=== PATIENT | male | born 1985 | race Caucasian/White ===

== ENCOUNTER → 2018-06-16 13:55 | Outpatient (CLI) | payer BC, SELFPAY ==
--- NOTE | 2018-06-16 13:58 | XR_ITS ---
XR knee RT 4V HISTORY: Pain ITS.REASON: 4 views weightbearing ORDERING PHYSICIAN: Fina Gunter MD PATIENT AGE: 32 years COMPARISON: None FINDINGS: No fracture or dislocation. No lytic or blastic change. Normal mineralization. No significant arthritic changes evident. Soft tissue swelling is present at the pretibial region superficial to the tibial tuberosity region. No fracture or dislocation. No lytic or blastic change. IMPRESSION: Soft tissue swelling along the proximal pretibial region consistent with bursitis
== END ==
PROVIDERS: PCP Emergency Medicine; Visit Provider Orthopaedic Surgery
DX: M25.561 Pain in right knee (principal)
CPT/HCPCS: 73564

== ENCOUNTER 2020-12-10 09:52 | Emergency (ER) | payer BC, SELFPAY ==
[2020-12-10 11:35] VITALS: BP 146/91; PULSE 112; RESP 21; TEMP 37; O2SAT 96; BMI 29.4
--- NOTE | 2020-12-10 12:07 | HMH.EDUTC ---
[facility] Disposition Clinical Impression: Sinusitis Qualifiers: Sinusitis location: unspecified location Chronicity: unspecified Qualified Code(s): J32.9 - Chronic sinusitis, unspecified Disposition: Home, Self-Care Condition on Discharge: Good Instructions: Sore Throat, DI for Sinusitis, DI for COVID-19 (Suspected or Confirmed ), Preventing the Spread of Coronavirus Discharge Instructions Additional Instructions: *Monitor Temp, Over the counter Motrin or Tylenol as directed/as needed Tylenol every 4 hours and Motrin every 6 hours (as long as your family doctor has told you that you can take it) for fever or pa-in. and straight to ER if unable to lower temp less than 101.0 after medication given *Warm salt water gargles may help to soothe the throat *Throat Lozenges *Warm fluids like tea with honey may help to soothe the throat *Sleep elevated *Humidifier/Vaporizer Your throat swab was sent for culture. Those results are typically sent to your primary care. Be sure to follow up in 2-3 days with your family doctor/primary care physician if no improvement so they can review those result and treat if necessary. If you don?t have a primary care doctor, I recommend you get one but in the mean time, you will have to return to a walk in clinic Follow up IMMEDIATELY for new or worsening symptoms or no Noticeable improvement over the next 48-72 hours. 911 for difficulty breathing or swallowing You were tested for today for COVID19 your test result should be back in the next 24-48 hours, Check the [facility] to see if your test results are back in the next 48 it may say detected that means your result is positive.You was given handout instructions on how log on and see your results. If you do not have internet access you may call the [facility] for your results [phone] You was given a handout with instructions for Self Quarantine and Self isolation for while you wait on test results and what to do if they are positive If you are positive the Health Dept will be contacting you also Make sure to take your Vitamins Vit. C Vit D and Zinc if you can take them Prescriptions: methylPREDNISolone [Medrol 4mg tab] 4 mg PO DIRECTED #21 tab Transmission Status: Received by [facility] Azithromycin [Z-Davon 250mg Tab] 250 mg PO DIRECTED #6 tab Transmission Status: Received by [facility] Referrals: Mario Paz MD [Primary Care Provider] - Forms: Work/School Release Medical Decision Making - Ananda Inquiry Pt receiving controlled substance: No Ananda was queried for this patient: No Vital Signs: 12/10/20 11:35 12/10/20 12:32 Temperature 98.6 F 98.6 F Temperature Source Oral Pulse Rate 112 H Pulse Rate [Right Brachial] 112 H Respiratory Rate Blood Pressure 146/91 H Blood Pressure [Right Arm] 146/91 H Blood Pressure Mean [Right Arm] 109 Blood Pressure Source [Right Arm] Automatic Cuff Blood Pressure Position [Right Arm] Sitting 02 Sat by Pulse Oximetry 96 Oxygen Delivery Method Room Air - Lab Data Lab results reviewed: Yes: I reviewed the patient's lab results. Orders (Tests/Meds): ORDERS Category Date Time Status Covid-19 Nasal PCR ([facility]) Routine Lab 12/10/20 11:43 Received [facility] HPI - General Stated complaint: body aches Time Seen by Provider: 12/10/20 12:07 Mode of Arrival: Ambulatory Source of Information: Patient Limitations: No Limitations Description of Symptoms (Recalled from Triage Doc. by RN): PATIENT C/O SINUS CONGESTION, COUGH, AND RUNNY NOSE SINCE THURSDAY HEENT Symptoms (Recalled from RN notes): Yes Resp Symptoms (Recalled from RN notes): Yes Skin Symptoms (Recalled from RN notes): No MS Symptoms (Recalled from RN notes): No Functional Status (Recalled from RN notes): WNL - History of Present Illness Provider Complaint: Patient states that he recently was on vacation in [facility] that ever since he has been having sinus pain and pre
[2020-12-10 12:32] VITALS: BP 146/91; PULSE 112; RESP 21; TEMP 37; O2SAT 96
[2020-12-10 21:21] LABS: UTC Strep Screen (Rapid) Negative (Negative)
--- NOTE | 2020-12-11 09:03 | PC.NURSE ---
pt notified of positive covid test results
[2020-12-11 09:06] LABS: UTC Influenza A Antigen Negative (Negative); UTC Influenza B Antigen Negative (Negative)
== END 2020-12-10 12:38 | disposition home or self-care (01) ==
PROVIDERS: Emergency Provider Nurse Practitioner; PCP Emergency Medicine
DX: U07.1 COVID-19 (principal); J32.9 Chronic sinusitis, unspecified; F17.210 Nicotine dependence, cigarettes, uncomplicated
CPT/HCPCS: 87804; 87880; 99203; G0463; U0003

== ENCOUNTER 2021-01-16 09:31 | Emergency (ER) | payer BC, SELFPAY ==
[2021-01-16 09:35] VITALS: BP 160/92; PULSE 91; RESP 19; TEMP 36.8; O2SAT 99; BMI 31.0
--- NOTE | 2021-01-16 10:06 | HMH.EDUTC ---
[facility] [place]ression: Otitis media Qualifiers: Otitis media type: unspecified Laterality: left Qualified Code(s): H66.92 - Otitis media, unspecified, left ear Otitis externa Qualifiers: Otitis externa type: unspecified type Chronicity: unspecified Laterality: left Qualified Code(s): H60.92 - Unspecified otitis externa, left ear Disposition: Home, Self-Care Condition on Discharge: Good Instructions: Middle Ear Infections (Alternative Therapy), Middle Ear Infection, Amoxicillin, Neomycin, Polymyxin, and Hydrocortisone Otic Additional Instructions: Use drops as prescribed Take oral medication as prescribed Follow up with your Family Doctor if no improvement or any worsening of symptoms Return if needed Straight to ER if any life threatening symptoms Prescriptions: Amoxicillin [Amoxicillin 875MG Tab] 875 mg PO Q12H #20 tab Transmission Status: Pending to [facility] Neomycin/Polymyxin B Sulf/Hc [Nnshumzi-Mfxvbemyx-ZQ Otic Susp 10mL] 4 drops EAR-LEFT TID 7 Days #10 ml Transmission Status: Pending to [facility] Referrals: Mario Paz MD [Primary Care Provider] - As needed Time of Disposition: 10:13 Medical Decision Making - Ananda Inquiry Pt receiving controlled substance: No Ananda was queried for this patient: No Vital Signs: 01/16/21 09:35 Temperature 98.3 F Temperature Source Oral Pulse Rate [Right Brachial] 91 H Respiratory Rate 19 Blood Pressure [Right Arm] 160/92 H Blood Pressure Mean [Right Arm] 114 Blood Pressure Source [Right Arm] Automatic Cuff Blood Pressure Position [Right Arm] Sitting 02 Sat by Pulse Oximetry 99 Oxygen Delivery Method Room Air [facility] [place] - General Stated complaint: lt ear pain Time Seen by Provider: 01/16/21 10:06 Mode of Arrival: Ambulatory Source of Information: Patient Limitations: No Limitations Description of Symptoms (Recalled from Triage Doc. by RN): PATIENT C/O LEFT EAR PAIN SINCE YESTERDAY HEENT Symptoms (Recalled from RN notes): Yes Resp Symptoms (Recalled from RN notes): No Skin Symptoms (Recalled from RN notes): No MS Symptoms (Recalled from RN notes): No Functional Status (Recalled from RN notes): WNL - History of Present Illness Provider Complaint: Patient states that he has been having pain in his left ear that has continued to get worse State that yesterday the pain was worse and hurt when he would open his mouth or try to eat and feels like it is swollen so he came in to get it checked out - Related Data Previous Rx's Medication Instructions Recorded Amoxicillin [Amoxicillin 875MG 875 mg PO Q12H #20 tab 01/16/21 Tab] Neomycin/Polymyxin B Sulf/Hc 4 drops EAR-LEFT TID 7 Days #10 ml 01/16/21 [Mbyjgygc-Hxweaxycj-BE Otic Susp 10mL] Allergies Allergy/AdvReac Type Severity Reaction Status Date / Time No Known Allergies Allergy Verified 06/16/18 14:41 - Worker's Comp Is this a Worker's Comp case?: No [facility] History - Hepatitis A Screen Drug use history?: No High risk sexual behaviors?: No History of sexually transmitted infection?: No Currently employed?: No Childcare worker?: No Do you have indoor plumbing?: Yes Do you have electricity?: Yes Attestation statement:: This patient has been screened for Hepatitis A risk factors. I have reviewed the patient's past medical history: Yes Medical History: Denies:: Asthma, Cancer, Chronic Obstructive Pulmonary Disease (COPD), Diabetes Mellitus Type 1, Diabetes Mellitus Type 2, Hypertension, MRSA Other Surgeries: Yes: Other Amputation: No Fractures: No - Social History Smoking Status: Current every day smoker Tobacco Type: cigarettes # Packs/Day (cigarettes): 2 Alcohol Intake: current Alcohol Intake Frequency:: holidays/special occasions only Occupational Status: employed Family Hx:: No significant family history ROS Obtained: Yes All systems reviewed & no additional complaints, Yes Systems reviewed as appropriate & no
[2021-01-16 10:20] VITALS: BP 160/92; PULSE 91; RESP 19; TEMP 36.8; O2SAT 99
== END 2021-01-16 10:24 | disposition home or self-care (01) ==
PROVIDERS: Emergency Provider Nurse Practitioner; PCP Emergency Medicine
DX: H66.92 Otitis media, unspecified, left ear (principal); H60.92 Unspecified otitis externa, left ear; F17.210 Nicotine dependence, cigarettes, uncomplicated
CPT/HCPCS: 99202; G0463

== ENCOUNTER 2021-11-18 14:15 | Emergency (ER) | payer BC, SELFPAY ==
[2021-11-18 15:03] VITALS: BP 152/80; PULSE 110; RESP 20; TEMP 38.7; O2SAT 98; BMI 30.1
[2021-11-18 15:21] LABS: UTC Strep Screen (Rapid) Negative (Negative)
--- NOTE | 2021-11-18 15:29 | HMH.EDUTC ---
[facility] [place] Clinical Impression: Viral syndrome, Exposure to COVID-19 virus Disposition: Home, Self-Care Condition on Discharge: Good Instructions: DI for Viral Syndrome, DI for COVID-19 (Suspected or Confirmed ), Preventing the Spread of Coronavirus Discharge Instructions Additional Instructions: Drink plenty of fluids. Take tylenol or ibuprofen for pain or fever. Take the medications as directed. Follow up with your regular doctor. GO TO THE ER FOR ANY WORSENING SYMPTOMS Quarantine until you know the results of your covid-19 test. Notify your school or workplace of your results and follow their instructions regarding return to work/school. Prescriptions: Benzonatate [Benzonatate 100mg cap] 100 mg PO TIDP PRN #30 cap PRN Reason: Cough Transmission Status: Received by [facility] methylPREDNISolone [Medrol] 4 mg PO DIRECTED 6 Days #21 packet Transmission Status: Received by [facility] Azithromycin [Z-Davon 250mg Tab*] 250 mg PO UD DOSE PK #6 tab Transmission Status: Received by [facility] Referrals: Mario Paz MD [Primary Care Provider] - Forms: Work/School Release Time of Disposition: 15:39 Medical Decision Making - Medical Records Medical records reviewed: No: I reviewed the patient's medical records. - Ananda Inquiry Pt receiving controlled substance: No Vital Signs: 11/18/21 15:03 11/18/21 15:44 Temperature 101.7 F H 101.7 F H Temperature Source Temporal Artery Scan Pulse Rate 110 H Pulse Rate [Left] 110 H Respiratory Rate 20 20 Blood Pressure 150/80 H Blood Pressure [Right Arm] 152/80 H Blood Pressure Mean [Right Arm] 104 02 Sat by Pulse Oximetry 98 - Lab Data Lab Results 11/18/21 15:07: Strep Scn Rapid Clinic Negative Orders (Tests/Meds): ED MEDICATIONS Discontinued Medications Generic Name Dose Route Start Last Admin Trade Name Freq PRN Reason Stop Dose Admin Acetaminophen 650 mg 11/18/21 15:07 11/18/21 15:09 Acetaminophen 325mg Tab PO 11/18/21 15:08 650 mg ONCE ONE Administration ORDERS Category Date Time Status Strep Screen Confirmation Stat Micro 11/18/21 15:07 Received [facility] [place] - General Stated complaint: h/a, fever, congestion, cough Time Seen by Provider: 11/18/21 15:29 Mode of Arrival: Ambulatory Source of Information: Patient Limitations: No Limitations Description of Symptoms (Recalled from Triage Doc. by RN): patient comes in with complaints of headache, fever, body aches, fatigue, cough, sinus problems. symptoms began yesterday. HEENT Symptoms (Recalled from RN notes): Yes Resp Symptoms (Recalled from RN notes): Yes Skin Symptoms (Recalled from RN notes): No MS Symptoms (Recalled from RN notes): No Functional Status (Recalled from RN notes): n/a - History of Present Illness Provider Complaint: He states that for the past 2 days he has felt bad, ran a fever up to 102, had chills, and he has a nonproductive cough. - Related Data Previous Rx's Medication Instructions Recorded Amoxicillin [Amoxicillin 875MG 875 mg PO Q12H #20 tab 01/16/21 Tab] Neomycin/Polymyxin B Sulf/Hc 4 drops EAR-LEFT TID 7 Days #10 ml 01/16/21 [Pzjobnlz-Vstkchfrm-NN Otic Susp 10mL] Azithromycin [Z-Davon 250mg Tab*] 250 mg PO UD DOSE PK #6 tab 11/18/21 Benzonatate [Benzonatate 100mg 100 mg PO TIDP PRN #30 cap 11/18/21 cap] methylPREDNISolone [Medrol] 4 mg PO DIRECTED 6 Days #21 11/18/21 packet Allergies Allergy/AdvReac Type Severity Reaction Status Date / Time No Known Allergies Allergy Verified 11/18/21 15:09 - Worker's Comp Is this a Worker's Comp case?: No [facility] History - Hepatitis A Screen Attestation statement:: This patient has been screened for Hepatitis A risk factors. I have reviewed the patient's past medical history: Yes Medical History: Denies:: Asthma, Cancer, Chronic Obstructive Pulmonary Disease (C
[2021-11-18 15:44] VITALS: BP 150/80; PULSE 110; RESP 20; TEMP 38.7
== END 2021-11-18 15:45 | disposition home or self-care (01) ==
PROVIDERS: Emergency Provider Nurse Practitioner Family; PCP Emergency Medicine
DX: R51.9 Headache, unspecified; M79.10 Myalgia, unspecified site; F17.210 Nicotine dependence, cigarettes, uncomplicated
CPT/HCPCS: 87880; 99213; C9803; G0463; U0003; U0005

== ENCOUNTER 2022-03-17 11:59 | Emergency (ER) | payer BC, SELFPAY ==
[2022-03-17 14:40] VITALS: BP 149/87; PULSE 109; RESP 19; TEMP 37.3; O2SAT 96; BMI 31.5
--- NOTE | 2022-03-17 14:55 | EXP.UTC ---
Discharge Plan Disposition Patient Disposition: Home, Self-Care Condition: Good Prescriptions Prescriptions: New oseltamivir [Tamiflu] 75 mg capsule 75 mg PO BID Qty: 10 0RF benzonatate 100 mg capsule 100 mg PO TID PRN (Reason: cough) Qty: 30 0RF Referrals Follow up/Referrals: Mario Paz MD [Primary Care Provider] - See instructions Activity Restrictions/Add. Instructions Additional Instructions/Restrictions: Start Tamiflu today if you are going to take it. Discussed risk and possible benefits. Lots of rest Increase Fluids water, Gatorade, powerade, pedialyte,if infant/toddler/child Alternate Tylenol and / or ibuprofen as discussed for fever, aches, chills Follow up IMMEDIATELY with your family doctor for new or worsening Symptoms OR no noticeable improvement over the next 48-72 hours, 911 for difficulty or breathing You or your child area contagious until no fever, aches, chills for 24 hours with medication for symptoms Help Prevent the spread of influenza: ?Wash your hands often. Use soap and water. Wash your hands after you use the bathroom, change a child's diapers, or sneeze. Wash your hands before you prepare or eat food. Use gel hand cleanser that has 60% alcohol, when soap and water are not available. Do not touch your eyes, nose, or mouth unless you have washed your hands first. Cover your mouth when you sneeze or cough. Cough into a tissue or the bend of your arm. If you use a tissue, throw it away immediately and wash your hands. Clean shared items with a germ-killing apron cleaner. Clean table surfaces, doorknobs, and light switches. Do not share towels, silverware, and dishes with people who are sick. Wash bed sheets, towels, silverware, and dishes with soap and water. Wear a mask over your mouth and nose if you are sick. The face mask may help protect others from becoming infected with the flu. Wear the mask when in common areas of your home or if you seek care with a healthcare provider. Stay away from others if you are sick. Stay at home until 24 hours after your fever and symptoms are gone. Clinical Impressions Clinical Impression: Influenza A Stand Alone Forms Stand Alone Forms: Work/School Release Instructions Patient Instructions: DI for Influenza -- Adult, Influenza Discharge ED Provider[place] Sybil Valenzuela [facility] [place] General Stated complaint: cough,runny nose,sneezing,no taste Mode of Arrival: Ambulatory Source of Information: Patient Limitations: No Limitations Time Seen by Provider: 03/17/22 14:55 Description of Symptoms (Recalled from Triage Doc. by RN): PATIENT C/O BODY ACHES, COUGH, AND FEVER SINCE YESTERDAY HEENT Symptoms (Recalled from RN notes): No Resp Symptoms (Recalled from RN notes): Yes Skin Symptoms (Recalled from RN notes): No MS Symptoms (Recalled from RN notes): No Functional Status (Recalled from RN notes): WNL History of Present Illness Provider Complaint: Patient states that he was around coworker that was sick but not sure what he had States that yesterday he started with bodyaches, chills, headache and fever and today he has had cough States that he feels achy all over and over all does not feel well Related Data Previous Rx's Medication Instructions Recorded benzonatate 100 mg capsule 100 mg PO TID PRN cough #30 caps 03/17/22 oseltamivir 75 mg capsule (Tamiflu) 75 mg PO BID #10 caps 03/17/22 Allergies Allergy/AdvReac Type Severity Reaction Status Date / Time No Known Allergies Allergy Verified 11/18/21 15:09 Worker's Comp Is this a Worker's Comp case?: No [facility] Disclaimer: The information contained in this section may have been updated after the patient was seen, as this information can be updated by other users. Medical History (Updated 03/17/22 @ 15:03 by Sybil Valenzuela APRN)
[2022-03-17 14:57] LABS: UTC Influenza A Antigen Positive (Negative); UTC Influenza B Antigen Negative (Negative)
[2022-03-17 15:04] VITALS: BP 149/87; PULSE 109; RESP 19; TEMP 37.3; O2SAT 96
== END 2022-03-17 15:10 | disposition home or self-care (01) ==
PROVIDERS: Emergency Provider Nurse Practitioner; PCP Emergency Medicine
DX: J10.1 Influenza due to other identified influenza virus with other respiratory manifestations (principal)
CPT/HCPCS: 87804; 99212; G0463

== ENCOUNTER → 2022-04-23 10:29 | Outpatient (POV) | payer BC, SELFPAY | PROVIDERS: Visit Provider Specialist/Technologist | DX: Z00.00 Encounter for general adult medical examination without abnormal findings (principal) ==

== ENCOUNTER → 2022-05-14 10:21 | Outpatient (POV) | payer BC, SELFPAY | PROVIDERS: Visit Provider Specialist/Technologist | DX: Z00.00 Encounter for general adult medical examination without abnormal findings (principal) ==

== ENCOUNTER 2023-04-12 10:41 | Emergency (ER) | payer BC, SELFPAY ==
--- NOTE | 2023-04-12 10:54 | XR_ITS ---
PROCEDURE INFORMATION: Exam: XR Left Hand Exam date and time: 04/12/2023 11:04 AM Age: 37 years old Clinical indication: Injury or trauma; Other: Foreign object in L 3rd distal phalanx, anterior; Additional info: Pain in middle finger TECHNIQUE: Imaging protocol: Radiologic exam of the left hand. Views: 3 or more views. COMPARISON: No relevant prior studies available. FINDINGS: Bones/joints: No acute fracture or malalignment. Joint spaces are maintained. Soft tissues: No radiopaque foreign bodies are seen. IMPRESSION: No acute fracture or malalignment. No radiopaque foreign bodies are seen.
[2023-04-12 11:00] VITALS: BP 123/84; PULSE 89; RESP 18; TEMP 36.8; O2SAT 97; BMI 32.3
--- NOTE | 2023-04-12 11:05 | ED_ITS ---
Discharge Plan Disposition Patient Disposition: Home, Self-Care Condition: Good Prescriptions Prescriptions: New cephalexin 500 mg capsule 500 mg PO QID Qty: 40 0RF mupirocin 2 % ointment 1 applic topical TID 7 Days Qty: 15 0RF No Action amoxicillin 875 mg tablet 875 mg PO BID Qty: 20 0RF mupirocin 2 % ointment 1 applic topical TID Qty: 15 0RF lisinopril 10 mg tablet 10 mg PO DAILY Qty: 30 2RF Referrals Follow up/Referrals: Melo Stock DO [Staff Physician] - See instructions Provider,Referral, [Primary Care Provider] - See instructions Activity Restrictions/Add. Instructions Additional Instructions/Restrictions: Keep the wound clean and dry. Watch the wound for signs of worsening infection, such as redness, swelling, drainage, fever. etc. Take tylenol or ibuprofen for pain. Follow up with your regular doctor. Follow up with orthopedics (Dr. Stock) if you continue to have trouble with the finger. I put in a referral but you would need to call his office and schedule the appointment. His office phone number will be on this paperwork. GO TO THE ER FOR ANY WORSENING SYMPTOMS OR CONCERNS. Clinical Impressions Clinical Impression: Foreign body in skin of left middle finger with infection Instructions Patient Instructions: DI for Removal of Foreign Body From Skin, Cephalexin, Mupirocin Discharge ED Provider: Jacobo Short [facility] General Stated complaint: foreign object in left middle finger,unknown origi Time Seen by Provider: 04/12/23 11:05 History of Present Illness Provider Complaint: He states that for the past 2 weeks he has had a splinter in his left middle finger. He has tried to get it out but he has been unsuccessful. He states that it is becoming more tender to touch. He denies any fever/chills. He is not a diabetic. Related Data Previous Rx's Medication Instructions Recorded amoxicillin 875 mg tablet 875 mg PO BID #20 tabs 04/02/23 lisinopril 10 mg tablet 10 mg PO DAILY #30 tabs 04/02/23 mupirocin 2 % topical ointment 1 applic topical TID #15 grams 04/02/23 cephalexin 500 mg capsule 500 mg PO QID #40 caps 04/12/23 mupirocin 2 % topical ointment 1 applic topical TID 7 days #15 04/12/23 grams Allergies Allergy/AdvReac Type Severity Reaction Status Date / Time No Known Allergies Allergy Verified 04/12/23 11: [facility] Disclaimer: The information contained in this section may have been updated after the patient was seen, as this information can be updated by other users. Medical History (Updated 04/12/23 @ 12:04 by Jacobo Short APRN) Hearing Loss Medical clearance for incarceration Tobacco abuse Surgical History (Reviewed 04/12/23 @ :23 by Slime Mcdermott RN) No significant past surgical history Family History (Reviewed 04/12/23 @ :23 by Slime Mcdermott RN) Other No significant family history Social History (Reviewed 04/12/23 @ : by Slime Mcdermott RN) Smoking Status: Current every day smoker tobacco type: cigarettes packs per day: 2 alcohol intake: current current occupational status: employed Travel in the last 8 weeks: None ROS Obtained: Yes All systems reviewed & no additional complaints except as documented Constitutional Constitutional: Denies chills and Denies fever(s) Eyes Eyes: Denies eye discharge ENT Ears, Nose, Mouth, and Throat: Denies dizziness, Denies otalgia and Denies sore throat Cardiovascular Cardiovascular: Denies chest pain Respiratory Respiratory: Denies shortness of breath, Denies chest congestion, Denies cough, Denies stridor and Denies wheezing Gastrointestinal Gastrointestingal: Denies nausea or vomiting Musculoskeletal Musculoskeletal: Reports system reviewed and no additional complaints, except as documented and Denies arthralgias Integumentary/Breasts Skin/Breast: Reports as per HPI Neurologic Neurologic: Denies dizziness and Denies paresthesias Allergic/Immunologic Allergic/Immunologic: Denies wheezing Physical Exam General General appearance: alert and in no apparent distress Head Head exam: atraumatic, normocephalic and normal inspection Eye Eye exam: Present normal appearance, PERRL and EOMI ENT ENT exam: Present normal exam, normal oropharynx, mucous membranes moist, TM's normal bilaterally and normal external ear exam Neck Neck exam: Present normal inspection, full ROM and trachea midline; Absent meningismus or lymphadenopathy Chest Chest inspection: Present normal inspection and symmetric chest wall rise; Absent tenderness Respiratory Respiratory exam: Present normal lung sounds bilaterally; Absent respiratory distress Cardiovascular Cardiovascular exam: Present regular rate and normal rhythm; Absent JVD Abdominal Exam Abdominal exam: Present soft and normal bowel sounds; Absent distention, tenderness or guarding Extremities Exam Extremities exam: Present normal inspection, full ROM and normal capillary refill; Absent calf tenderness Back Exam Back exam: Present normal inspection; Absent tenderness Neurological Exam Neurological exam: Present alert and oriented X3 Psychiatric Psychiatric exam: Present normal affect and normal mood Skin Skin exam: Present other (there is mild swelling of the palmar aspect of his left middle finger near the tip. ) Lymphatic Lymphatic Findings: no adenopathy Medical Decision Making Medical Records Medical records reviewed: No I reviewed the patient's medical records. Ananda Inquiry Pt receiving controlled substance: No Orders (Tests/Meds): ORDERS Category Date Time Status Hand XR left minimum 3 views [XR hand LT min 3V] Stat Exams 04/12/23 10:54 Ordered Procedures Risk/Benefits of Procedure(s) Were Explained: Yes Foreign Body Removal Time Out Performed: Yes Site: left and hand (middle finger) Description of foreign body: other (splinter) Sedation/Analgesia: none Technique: removal with forceps and incision made to facilitate removal Confirmed by:: direct visualization and radiograph Complications: none (He tolerated this well, a very small piece of wood was removed from the finger. ) Post-procedure exam: awake, alert, normal BP, normal HR and normal O2 sat Neurovascular: normal distal pulse, normal capillary fill, distal light touch sensation intact, distal motor function normal, no signs of compartment syndrome and no change from pre-procedure
[2023-04-12] MEDS: LIDOCAINE 1% PF 2ML AMPULE 1 ML IJ (12:04)
[2023-04-12 12:10] VITALS: BP 123/84; PULSE 89; RESP 18; TEMP 36.8; O2SAT 97
== END 2023-04-12 12:00 | disposition home or self-care (01) ==
PROVIDERS: Emergency Provider Nurse Practitioner Family
DX: S60.453A Superficial foreign body of left middle finger, initial encounter (principal); F17.210 Nicotine dependence, cigarettes, uncomplicated; W45.8XXA Other foreign body or object entering through skin, initial encounter
CPT/HCPCS: 10120; 73130; 99213; 99214; G0463

== ENCOUNTER 2023-04-17 19:32 | Outpatient (CLI) | payer BC, SELFPAY ==
[2023-04-17 19:48] LABS: Basophils # 0.1 K/mm3 (0-0.2); Basophils % 0.8 % (0.1-2.0); Eosinophils # 0.3 K/mm3 (0.0-0.4); Eosinophils % 2.5 % (0.1-12.0); Hematocrit 51.6 % (42.0-52.0); Hemoglobin 17.1 g/dL (14.1-18.0); Lymphocytes # 1.7 K/mm3 (0.7-4.5); Lymphocytes % 15.2 % (10-50); Mean Corpuscular HGB Conc 33.1 g/dL (31.8-35.4); Mean Corpuscular Hemoglobin 32.7 pg (27.0-31.2); Mean Corpuscular Volume 98.8 fl (80-94); Mean Platelet Volume 8.7 fl (7.4-10.4); Monocytes # 0.6 K/mm3 (0.1-1.0); Monocytes % 5.2 % (1.7-9.3); Neutrophils # 8.4 K/mm3 (1.8-7.8); Neutrophils % 76.2 % (37.0-80.0); Platelet Count 287 K/mm3 (142-424); Red Blood Count 5.23 M/mm3 (4.60-6.20); Red Cell Distribution Width 12.6 % (11.5-17.5)
[2023-04-17 20:40] LABS: Chloride 99 mmol/L (98-107); Potassium 4.1 mmoL/L (3.5-5.1); Sodium 134 mmol/L (136-145)
[2023-04-17 20:42] LABS: Alanine Aminotransferase 47 U/L (12-78); Aspartate Amino Transferase 46 U/L (17-59); Blood Urea Nitrogen 8 mg/dl (9-20); Estimated Glomerular Filt Rate 108 ml/min (>60); GFR (African American) 131 ML/MIN (>60)
[2023-04-17 20:43] LABS: Albumin Level 4.6 g/dl (3.5-5.0); Albumin/Globulin Ratio 1.6 (1.1-1.8); Alkaline Phosphatase 95 U/L (38-126); Anion Gap 16.1 mEq/L (5-15); Bilirubin,Total 0.6 mg/dl (0.2-1.3); Calcium 8.9 mg/dl (8.4-10.2); Carbon Dioxide 23 mmol/L (22.0-30.0); Chol/HDL Ratio 5.4 (1-3.5); Cholesterol 244 mg/dl (140-200); Globulin 2.9 g/dL (1.3-3.2); Glucose 115 mg/dl (74-100); HDL Cholesterol 45 mg/dl (40-60); Total Protein,Serum 7.5 g/dl (6.3-8.2); Triglycerides 174 mg/dl (30-150); VLDL Cholesterol 35 mg/dL (0-40)
[2023-04-17 20:54] LABS: Direct LDL Cholesterol 165.45 mg/dL (100-129)
[2023-04-17 21:14] LABS: Thyroid Stimulating Hormone 1.19 uIU/mL (0.465-4.68)
[2023-04-17 21:33] LABS: 25-OH Vitamin D, Total 48.6 ng/mL (30-100)
== END 2023-04-17 23:59 ==
LOC: LAB.DROPOF 19:35
PROVIDERS: PCP Student in an Organized Health Care Education/Training Program; Visit Provider Student in an Organized Health Care Education/Training Program
DX: I10 Essential (primary) hypertension (principal); R51.9 Headache, unspecified; E66.9 Obesity, unspecified; Z68.32 Body mass index [BMI] 32.0-32.9, adult; Z72.0 Tobacco use; Z79.899 Other long term (current) drug therapy
CPT/HCPCS: 80053; 80061; 82306; 84443; 85025

== ENCOUNTER 2023-10-17 09:01 | Emergency (ER) | payer SELFPAY ==
[2023-10-17 09:01] VITALS: BP 157/98; PULSE 107; RESP 24; TEMP 37.3; O2SAT 90
--- NOTE | 2023-10-17 09:04 | [facility].EDGENADL ---
Discharge Plan Disposition Patient Disposition: Home, Self-Care Condition: Fair Prescriptions Prescriptions: New methocarbamol 500 mg tablet 500 mg PO Q8H Qty: 90 0RF oxycodone 5 mg tablet 5 mg PO Q8H PRN (Reason: pain) Qty: 10 0RF ibuprofen 600 mg tablet 600 mg PO Q8H PRN (Reason: pain) Qty: 30 0RF acetaminophen 500 mg capsule 500 mg PO Q6H PRN (Reason: pain) Qty: 30 0RF No Action lisinopril 10 mg tablet 10 mg PO DAILY Qty: 30 2RF mupirocin 2 % ointment 1 applic topical TID 7 Days Qty: 15 0RF Referrals Follow up/Referrals: Provider,Referral, MD [Primary Care Provider] - See instructions Activity Restrictions/Add. Instructions Additional Instructions/Restrictions: As we discussed, your CT scans showed rib fractures of your fifth through eighth ribs on the right. They are closed, we do not see any other acute injuries on your CT scans. I have prescribed pain medications for you to take to manage pain related to rib fractures. Will need to follow-up with your primary care doctor and it is very important to use the incentive spirometer that I have provided. Please use this multiple times throughout the day, for example, if you are watching television, using incentive spirometer during every commercial break. This will help you keep your lungs open with your rib injuries that are painful with breathing deeply, however it is important to keep your lungs open to prevent infection. After shared decision making we have decided not to admit you to the hospital. However, please return with any new or worsening symptoms or if you change your mind. Clinical Impressions Clinical Impression: Multiple fractures of ribs Qualifiers: Encounter type: initial encounter Fracture type: closed Laterality: right Qualified Code(s): S22.41XA - Multiple fractures of ribs, right side, initial encounter for closed fracture Stand Alone Forms Stand Alone Forms: Work/School Release Instructions Patient Instructions: Rib Fracture, DI for Rib Fracture Discharge ED Provider: Herbert Rose Adult HPI General Chief complaint: Fall Stated complaint: AO fall Time Seen by Provider: 10/17/23 09:04 History of Present Illness HPI narrative: The patient presents with a chief complaint of pain and injuries sustained from a fall off an embankment the previous night at approximately 10:30 PM. He reports hitting tree roots and rocks during the fall and was fishing at the time of the incident. He denies losing consciousness during the fall. He is experiencing pain in multiple areas, including the right side of the ribs, head, neck, and jaw. He reports that taking a deep breath, talking, and getting up and down are all painful. He is unsure about his tetanus vaccination status but believes he may be up to date. He has a history of smoking and reports having a medical condition and taking medications, but specific details were not provided during the encounter. He denies any known allergies to medications. He denies any chronic medical issues with the exception of hypertension. Denies any numbness or tingling. Denies any diplopia, denies any nausea or vomiting. Denies any shortness of breath or difficulty swallowing. Please note that above description of symptoms, in this electronic medical record under categorization of recalled from ER triage doctor by RN are reflective of an initial nursing assessment, however, is not reflective of my full history and physical exam that was personally taken and clarified. Consequentially, this preceding description of symptoms, which may include the patient's categorized chief complaint in the EMR, do not reflect my personal clinical impression, and the ultimate description of history of present illness and patient stated complaints should be deferred to this section of the note. Unless stated otherwise or congruent with this section of the note, additional signs, symptoms, or incongruence should be interpreted as inaccurate with my clinical impression. Related Data Previous Rx's Medication Instructions Recorded lisinopril 10 mg tablet 10 mg PO DAILY #30 tabs 04/02/23 mupirocin 2 % topical ointment 1 applic topical TID 7 days #15 04/12/23 grams acetaminophen 500 mg capsule 500 mg PO Q6H PRN pain #30 caps 10/17/23 ibuprofen 600 mg tablet 600 mg PO Q8H PRN pain #30 tabs 10/17/23 methocarbamol 500 mg tablet 500 mg PO Q8H #90 tabs 10/17/23 oxycodone 5 mg tablet 5 mg PO Q8H PRN pain #10 tabs 10/17/23 Allergies Allergy/AdvReac Type Severity Reaction Status Date / Time No Known Allergies Allergy Verified 04/17/23 14:36 [facility] Disclaimer: The information contained in this section may have been updated after the patient was seen, as this information can be updated by other users. Medical History (Updated 10/17/23 @ 12:54 by Herbert Rose MD) Hypertension Hearing Loss Medical clearance for incarceration Nail avulsion of toe Tobacco abuse Surgical History No significant past surgical history Family History Other No significant family history Social History Smoking Status: Current every day smoker tobacco type: cigarettes packs per day: 2 alcohol intake: current alcohol intake frequency: holidays/special occasions only current occupational status: employed Travel in the last 8 weeks: None ROS Obtained: Yes other As per HPI Physical Exam General General appearance: alert and in distress Head Head exam: normocephalic and other (Frontal and occipital scalp abrasion, clean, noncontaminated, hemostatic) Eye Eye exam: Present normal appearance Neck Neck exam: Present normal inspection Chest Chest inspection: Present normal inspection and symmetric chest wall rise Respiratory Respiratory exam: Present other (Rhonchi bilaterally) Cardiovascular Cardiovascular exam: Present regular rate and normal rhythm Abdominal Exam Abdominal exam: Present soft Neurological Exam Neurological exam: Present alert and oriented X3 Psychiatric Psychiatric exam: Present normal affect and normal mood Skin Skin exam: Present warm and dry Other Other exam information: No abdominal tenderness to palpation, no chest wall tenderness to palpation, right-sided posterior thoracic tenderness to palpation, bilateral breath sounds, alert, oriented, distally neurovascularly intact in all 4 extremities, Medical Decision Making Medical Records Medical records reviewed: Yes I reviewed the patient's medical records. Ananda Inquiry Pt receiving controlled substance: No Vital Signs: 10/17/23 09:01 10/17/23 09:06 10/17/23 09:30 Temperature 99.1 F Temperature Source Oral Pulse Rate 89 97 H Pulse Rate [Left] 107 H Respiratory Rate 24 Blood Pressure 157/98 H Blood Pressure [Left Arm] 157/98 H Blood Pressure Mean [Left Arm] 117 02 Sat by Pulse Oximetry 90 L 90 L 93 L Oxygen Delivery Method Room Air 10/17/23 10:31 10/17/23 12:59 Temperature 98.9 F Temperature Source Oral Pulse Rate 99 H 89 Pulse Rate [Left] Respiratory Rate 22 Blood Pressure 150/101 H Blood Pressure [Left Arm] Blood Pressure Mean [Left Arm] 02 Sat by Pulse Oximetry 93 L Oxygen Delivery Method Room Air Lab Data Lab Results 10/17/23 09:20: WBC 9.3, RBC 5.24, Hgb 17.8, Hct 52.5 H, MCV 100.2 H, MCH 34.0 H, MCHC 34.0, RDW 13.7, Plt Count 249, MPV 8.0, Neut % (Auto) 83.8 H, Lymph % (Auto) 8.6 L, Hanson % (Auto) 5.6, Eos % (Auto) 1.3, Baso % (Auto) 0.7, Neut # (Auto) 7.8, Lymph # (Auto) 0.8, Hanson # (Auto) 0.5, Eos # (Auto) 0.1, Baso # (Auto) 0.1, PT 10.4, INR 0.92, APTT 29.6, Sodium 136, Potassium 4.2, Chloride 103, Carbon Dioxide 26, Anion Gap 11.2, BUN 5 L, Creatinine 0.60 L, Estimated Creat Clear 6, Estimated GFR 151, Est GFR ( Amer) 182, Glucose 114 H, Calcium 10.1, Total Bilirubin 0.6, AST 72 H, ALT 44, Alkaline Phosphatase 78, Total Protein 7.9, Albumin 4.6, Globulin 3.3 H, Albumin/Globulin Ratio 1.4, Plasma/Serum Alcohol 30 H 10/17/23 09:20 10/17/23 09:20 Orders (Tests/Meds): ED MEDICATIONS Discontinued Medications Generic Name Dose Route Start Last Admin Trade Name Darlyn PRN Reason Stop Dose Admin Iopamidol 200 ml 10/17/23 10:26 10/17/23 10:27 Iopamidol-370 (76%);100ml Bottle IV 10/17/23 10:27 200 ml ONCE ONE Administration Morphine Sulfate 4 mg 10/17/23 09:09 10/17/23 09:21 Morphine 4mg/Ml Syringe IV 10/17/23 09:10 4 mg ONCE ONE Administration Oxycodone HCl 5 mg 10/17/23 11:58 10/17/23 12:02 Oxycodone 5mg Immediate Release Tablet PO 10/17/23 11:59 5 mg ONCE ONE Administration Sodium Chloride 10 ml 10/17/23 10:26 10/17/23 10:27 Sodium Chloride 0.9% 10ml Syr (Rad Only) IV 11/16/23 10:25 10 ml NEEDED PRN Administration Maintain IV Site Sodium Chloride 100 ml 10/17/23 10:26 10/17/23 10:27 0.9 % Sodium Chloride 50 Ml Vial IV 10/17/23 10:27 100 ml ONCE ONE Administration Tetanus/Reduced Diphtheria/Acell Pertussis 0.5 ml 10/17/23 09:13 10/17/23 10:41 Tet/Diphth/Pert-Adult 0.5ml Syringe IM 10/17/23 09:14 0.5 ml .ONCE ONE Administration ORDERS Category Date Time Status CT angio abdomen pelvis Stat Cat Scan 10/17/23 09:[address] angio chest - dissection Stat Cat Scan 10/17/23 09:[address] angio head Stat Cat Scan 10/17/23 09:[address] angio neck Stat Cat Scan 10/17/23 09:[address] cervical spine wo con Stat Cat Scan 10/17/23 09:[address] facial bones wo con Stat Cat Scan 10/17/23 09:[address] head/brain wo con Stat Cat Scan 10/17/23 09:[address] lumbar spine wo con Stat Cat Scan 10/17/23 09:[address] thoracic spine wo con Stat Cat Scan 10/17/23 09:10 Completed Activated Partial Thrombo Time Stat Lab 10/17/23 09:20 Completed CBC [Complete Blood Count Auto Diff] Stat Lab 10/17/23 09:20 Completed Comprehensive Metabolic Panel Stat Lab 10/17/23 09:20 Completed Ethyl Alcohol Stat Lab 10/17/23 09:20 Completed Prothrombin Time INR Stat Lab 10/17/23 09:20 Completed Medical Decision Narrative: Patient with history and exam per above presenting for evaluation of multiple injuries sustained after fall yesterday evening. Diagnoses considered include fracture, intracranial hemorrhage, intra-abdominal injury, hollow viscus injury, vascular injury, nerve injury, among others. ED workup and treatment included: ED MEDICATIONS Discontinued Medications Generic Name Dose Route Start Last Admin Trade Name Freq PRN Reason Stop Dose Admin Iopamidol 200 ml 10/17/23 10:26 10/17/23 10:27 Iopamidol-370 (76%);100ml Bottle IV 10/17/23 10:27 200 ml ONCE ONE Administration Morphine Sulfate 4 mg 10/17/23 09:09 10/17/23 09:21 Morphine 4mg/Ml Syringe IV 10/17/23 09:10 4 mg ONCE ONE Administration Oxycodone HCl 5 mg 10/17/23 11:58 10/17/23 12:02 Oxycodone 5mg Immediate Release Tablet PO 10/17/23 11:59 5 mg ONCE ONE Administration Sodium Chloride 10 ml 10/17/23 10:26 10/17/23 10:27 Sodium Chloride 0.9% 10ml Syr (Rad Only) IV 11/16/23 10:25 10 ml NEEDED PRN Administration Maintain IV Site Sodium Chloride 100 ml 10/17/23 10:26 10/17/23 10:27 0.9 % Sodium Chloride 50 Ml Vial IV 10/17/23 10:27 100 ml ONCE ONE Administration Tetanus/Reduced Diphtheria/Acell Pertussis 0.5 ml 10/17/23 09:13 10/17/23 10:41 Tet/Diphth/Pert-Adult 0.5ml Syringe IM 10/17/23 09:14 0.5 ml .ONCE ONE Administration ORDERS Category Date Time Status CT angio abdomen pelvis Stat Cat Scan 10/17/23 09:[address] angio chest - dissection Stat Cat Scan 10/17/23 09:[address] angio head Stat Cat Scan 10/17/23 09:[address] angio neck Stat Cat Scan 10/17/23 09:[address] cervical spine wo con Stat Cat Scan 10/17/23 09:[address] facial bones wo con Stat Cat Scan 10/17/23 09:[address] head/brain wo con Stat Cat Scan 10/17/23 09:[address] lumbar spine wo con Stat Cat Scan 10/17/23 09:[address] thoracic spine wo con Stat Cat Scan 10/17/23 09:10 Completed Activated Partial Thrombo Time Stat Lab 10/17/23 09:20 Completed CBC [Complete Blood Count Auto Diff] Stat Lab 10/17/23 09:20 Completed Comprehensive Metabolic Panel Stat Lab 10/17/23 09:20 Completed Ethyl Alcohol Stat Lab 10/17/23 09:20 Completed Prothrombin Time INR Stat Lab 10/17/23 09:20 Completed Labs were independently interpreted by me, significant for ethyl alcohol 30 Imaging was independently visualized and interpreted by me, significant for multiple right-sided displaced rib fractures, no pneumothorax, no other acute injuries Please refer to radiology report for full details. My clinical impression at this time is most consistent with multiple closed right-sided rib fractures. I discussed my clinical impression with patient and answered all questions. Patient was able to pull greater than 1500 cc on incentive spirometer. He reports improvement of pain with p.o. oxycodone. I offered patient transfer to trauma center for further care, however, given patient is relatively young,pain is well-controlled, and after discussion of risks versus benefits, patient is requesting to be discharged and manage symptoms at home with pain medications and close outpatient follow-up. He has capacity to do so at this time, family member at bedside in agreement with this plan. He was provided multimodal pain control as well as incentive spirometer and was instructed on how to use it as well as the frequency of which she should use it. Return precautions were given. Critical Care Critical Care Time Critical Care Time: No
[2023-10-17 09:06] VITALS: BP 157/98; PULSE 89; O2SAT 90
--- NOTE | 2023-10-17 09:10 | CT_ITS ---
PROCEDURE INFORMATION: Exam: CT Cervical Spine Without Contrast Exam date and time: 10/17/2023 10:11 AM Age: 37 years old Clinical indication: Injury or trauma; Fall; Blunt trauma; Additional info: Trauma, critical injury suspected TECHNIQUE: Imaging protocol: Computed tomography of the cervical spine without contrast. Radiation optimization: All CT scans at this facility use at least one of these dose optimization techniques: automated exposure control; mA and/or kV adjustment per patient size (includes targeted exams where dose is matched to clinical indication); or iterative reconstruction. COMPARISON: CT FACIAL BONES WO CON 10/17/2023 10:08 AM FINDINGS: Bones/joints: No acute fracture. Normal alignment. There is straightening of cervical lordosis. There is mild multilevel spondylosis. C2-C3: No significant disc bulge or herniation. No severe spinal canal stenosis. No significant neural foraminal narrowing. C3-C4: No significant disc bulge or herniation. No severe spinal canal stenosis. No significant neural foraminal narrowing. C4-C5: No significant disc bulge or herniation. No severe spinal canal stenosis. No significant neural foraminal narrowing. C5-C6: No significant disc bulge or herniation. No severe spinal canal stenosis. No significant neural foraminal narrowing. C6-C7: No significant disc bulge or herniation. No severe spinal canal stenosis. No significant neural foraminal narrowing. C7-T1: No significant disc bulge or herniation. No severe spinal canal stenosis. No significant neural foraminal narrowing. Lungs: Lung apices are normal. Soft tissues: Unremarkable. IMPRESSION: No acute findings.
--- NOTE | 2023-10-17 09:10 | CT_ITS ---
PROCEDURE INFORMATION: Exam: CT Head Without Contrast Exam date and time: 10/17/2023 10:05 AM Age: 37 years old Clinical indication: Injury or trauma; Fall; Blunt trauma (contusions or hematomas); Consciousness not specified; Additional info: Trauma, critical injury suspected TECHNIQUE: Imaging protocol: Computed tomography of the head without contrast. Radiation optimization: All CT scans at this facility use at least one of these dose optimization techniques: automated exposure control; mA and/or kV adjustment per patient size (includes targeted exams where dose is matched to clinical indication); or iterative reconstruction. COMPARISON: No relevant prior studies available. FINDINGS: Brain: There is no evidence of acute parenchymal hemorrhage, extra-axial collection, or acute infarction. There is no mass effect, midline shift, or downward herniation. Cerebral ventricles: No ventriculomegaly. Paranasal sinuses: Visualized sinuses are unremarkable. No fluid levels. Mastoid air cells: Visualized mastoid air cells are well aerated. Bones: Unremarkable. No acute fracture. Soft tissues: Unremarkable. IMPRESSION: No acute intracranial abnormality.
--- NOTE | 2023-10-17 09:10 | CT_ITS ---
PROCEDURE INFORMATION: Exam: CT Lumbar Spine Without Contrast Exam date and time: 10/17/2023 10:17 AM Age: 37 years old Clinical indication: Injury or trauma; Fall; Blunt trauma (contusions or hematomas); Additional info: Trauma, critical injury suspected TECHNIQUE: Imaging protocol: Computed tomography of the lumbar spine without contrast. Radiation optimization: All CT scans at this facility use at least one of these dose optimization techniques: automated exposure control; mA and/or kV adjustment per patient size (includes targeted exams where dose is matched to clinical indication); or iterative reconstruction. COMPARISON: CT LUMBAR SPINE WO CON 10/17/2023 10:17 AM FINDINGS: Bones/joints: There is preservation of vertebral alignment and vertebral body heights. Facet joints are aligned. No acute fracture. No significant central spinal canal stenosis or neural foraminal narrowing at any level. Sacroiliac joints are intact. Soft tissues: Unremarkable. IMPRESSION: No acute fracture. No traumatic subluxation.
--- NOTE | 2023-10-17 09:10 | CT_ITS ---
PROCEDURE INFORMATION: Exam: CTA Head With Contrast, Arteriography Exam date and time: 10/17/2023 10:21 AM Age: 37 years old Clinical indication: Injury or trauma; Fall; Blunt trauma; Head; Additional info: Trauma, critical injury suspected TECHNIQUE: Imaging protocol: Computed tomographic angiography of the head with contrast. Exam focused on the arteries. 3D rendering (Not supervised by radiologist): MIP and/or 3D reconstructed images were created by the technologist. Radiation optimization: All CT scans at this facility use at least one of these dose optimization techniques: automated exposure control; mA and/or kV adjustment per patient size (includes targeted exams where dose is matched to clinical indication); or iterative reconstruction. Contrast material: ISOVUE 370; Contrast volume: 100 ml; Contrast route: INTRAVENOUS (IV); COMPARISON: CT HEAD/BRAIN WO CON 10/17/2023 10:05 AM FINDINGS: ANTERIOR CIRCULATION: Right internal carotid artery: Intracranial segment is patent with no significant stenosis. No aneurysm. Right middle cerebral artery: No occlusion or significant stenosis. No aneurysm. Right anterior cerebral artery: No occlusion or significant stenosis. No aneurysm. Left internal carotid artery: Intracranial segment is patent with no significant stenosis. No aneurysm. Left middle cerebral artery: No occlusion or significant stenosis. No aneurysm. Left anterior cerebral artery: No occlusion or significant stenosis. No aneurysm. POSTERIOR CIRCULATION: Right vertebral artery: No occlusion or significant stenosis. No aneurysm. Left vertebral artery: No occlusion or significant stenosis. No aneurysm. Basilar artery: No occlusion or significant stenosis. No aneurysm. Right posterior cerebral artery: No occlusion or significant stenosis. No aneurysm. Left posterior cerebral artery: No occlusion or significant stenosis. No aneurysm. Brain: No definite mass, mass effect, or midline shift. Cerebral ventricles: No ventriculomegaly. Bones/joints: Unremarkable. No acute fracture. Soft tissues: Unremarkable. IMPRESSION: No large vessel stenosis or occlusion. PROCEDURE INFORMATION: Exam: CTA Neck With Contrast Exam date and time: 10/17/2023 10:21 AM Age: 37 years old Clinical indication: Injury or trauma; Fall; Blunt trauma; Head; Additional info: Trauma, critical injury suspected TECHNIQUE: Imaging protocol: Computed tomographic angiography of the neck with contrast. Exam focused on the cervical segments of the vasculature. 3D rendering (Not supervised by radiologist): MIP and/or 3D reconstructed images were created by the technologist. COMPARISON: CT ANGIO NECK 10/17/2023 10:21 AM FINDINGS: Right common carotid artery: No stenosis. No dissection or occlusion. Right internal carotid artery: No stenosis of the extracranial segment. No dissection or occlusion. Right external carotid artery: No occlusion or stenosis of the origin. Left common carotid artery: No stenosis. No dissection or occlusion. Left internal carotid artery: No stenosis of the extracranial segment. No dissection or occlusion. Left external carotid artery: No occlusion or stenosis of the origin. Right vertebral artery: No stenosis. No dissection or occlusion. Left vertebral artery: No stenosis. No dissection or occlusion. Soft tissues: Normal. No significant soft tissue swelling. Bones/joints: No acute fracture. IMPRESSION: No stenosis or occlusion. REFERENCES: NASCET CRITERIA. The degree of stenosis in the cervical segment of the internal carotid artery is based on NASCET criteria. Normal is no stenosis. Mild is less than 50% stenosis. Moderate is 50-69% stenosis. Severe is 70% to 99% stenosis. Total occlusion is no detectable patent lumen.
--- NOTE | 2023-10-17 09:10 | CT_ITS ---
PROCEDURE INFORMATION: Exam: CTA Neck With Contrast Exam date and time: 10/17/2023 10:21 AM Age: 37 years old Clinical indication: Injury or trauma; Fall; Blunt trauma; Head; Additional info: Trauma, critical injury suspected TECHNIQUE: Imaging protocol: Computed tomographic angiography of the neck with contrast. Exam focused on the cervical segments of the vasculature. 3D rendering (Not supervised by radiologist): MIP and/or 3D reconstructed images were created by the technologist. Radiation optimization: All CT scans at this facility use at least one of these dose optimization techniques: automated exposure control; mA and/or kV adjustment per patient size (includes targeted exams where dose is matched to clinical indication); or iterative reconstruction. Contrast material: ISOVUE 370; Contrast volume: 100 ml; Contrast route: INTRAVENOUS (IV); COMPARISON: CT CERVICAL SPINE WO CON 10/17/2023 10:11 AM FINDINGS: Right common carotid artery: No stenosis. No dissection or occlusion. Right internal carotid artery: No stenosis of the extracranial segment. No dissection or occlusion. Right external carotid artery: No occlusion or stenosis of the origin. Left common carotid artery: No stenosis. No dissection or occlusion. Left internal carotid artery: No stenosis of the extracranial segment. No dissection or occlusion. Left external carotid artery: No occlusion or stenosis of the origin. Right vertebral artery: No stenosis. No dissection or occlusion. Left vertebral artery: No stenosis. No dissection or occlusion. Soft tissues: Normal. No significant soft tissue swelling. Bones/joints: There is a partially displaced right 5th rib fracture. IMPRESSION: 1. No evidence of vascular injury. 2. Partially displaced right 5th rib fracture. REFERENCES: NASCET CRITERIA. The degree of stenosis in the cervical segment of the internal carotid artery is based on NASCET criteria. Normal is no stenosis. Mild is less than 50% stenosis. Moderate is 50-69% stenosis. Severe is 70% to 99% stenosis. Total occlusion is no detectable patent lumen.
--- NOTE | 2023-10-17 09:10 | CT_ITS ---
PROCEDURE INFORMATION: Exam: CTA Abdomen and Pelvis With Contrast Exam date and time: 10/17/2023 10:26 AM Age: 37 years old Clinical indication: Injury or trauma; Fall; Blunt trauma; Lower abdominal or back area; Bilateral; Additional info: Trauma, critical injury suspected TECHNIQUE: Imaging protocol: Computed tomographic angiography of the abdomen and pelvis with contrast. Exam focused on the arteries. 3D rendering (Not supervised by radiologist): MIP and/or 3D reconstructed images were created by the technologist. Radiation optimization: All CT scans at this facility use at least one of these dose optimization techniques: automated exposure control; mA and/or kV adjustment per patient size (includes targeted exams where dose is matched to clinical indication); or iterative reconstruction. Contrast material: ISOVUE 370; Contrast volume: 100 ml; Contrast route: INTRAVENOUS (IV); COMPARISON: CT ANGIO CHEST 10/17/2023 10:26 AM FINDINGS: Aorta: No aortic aneurysm. No aortic dissection. Celiac trunk and mesenteric arteries: No occlusion or significant stenosis. Renal arteries: No occlusion or significant stenosis. Right iliac arteries: No occlusion or significant stenosis. Left iliac arteries: No occlusion or significant stenosis. Liver: No focal hepatic lesions. Hepatic steatosis noted. Gallbladder and biliary ducts: Gallbladder is distended without radiopaque cholelithiasis. No biliary ductal dilation. Pancreas: No peripancreatic fluid stranding. No main pancreatic ductal dilation. Spleen: Spleen measures 13.6 cm. Adrenal glands: The adrenal glands are normal. Kidneys and ureters: Nephrograms are symmetric. No nephrolithiasis or hydroureteronephrosis on either side. No solid lesions Stomach and bowel: No bowel wall thickening or distention. Appendix: A normal appendix is identified. Intraperitoneal space: There is no evidence of free intraperitoneal or pelvic fluid. Lymph nodes: Unremarkable. No enlarged lymph nodes. Urinary bladder: Urinary bladder is unremarkable. Reproductive: Unremarkable as visualized. Bones/joints: No acute osseous abnormality. For findings in the lumbar spine, please refer to the separately dictated lumbar spine CT report under a separate accession number. Soft tissues: Unremarkable. Other findings: For findings in the chest, please refer to the separately dictated chest CT report under a separate accession number. IMPRESSION: 1. No traumatic injury or acute abnormality in the abdomen or pelvis 2. Spleen is at the upper limits of normality/mild splenomegaly 3. Hepatic steatosis
--- NOTE | 2023-10-17 09:10 | CT_ITS ---
PROCEDURE INFORMATION: Exam: CTA Chest With Contrast Exam date and time: 10/17/2023 10:26 AM Age: 37 years old Clinical indication: Injury or trauma; Fall; Blunt trauma (contusions or hematomas); Additional info: Trauma, critical injury suspected TECHNIQUE: Imaging protocol: Computed tomographic angiography of the chest with contrast. Exam focused on the arteries. 3D rendering (Not supervised by radiologist): MIP and/or 3D reconstructed images were created by the technologist. Radiation optimization: All CT scans at this facility use at least one of these dose optimization techniques: automated exposure control; mA and/or kV adjustment per patient size (includes targeted exams where dose is matched to clinical indication); or iterative reconstruction. Contrast material: ISOVUE 370; Contrast volume: 100 ml; Contrast route: INTRAVENOUS (IV); COMPARISON: CR CXR2V XR chest 2V 07/28/2017 5:17 PM FINDINGS: Pulmonary arteries: Normal. No pulmonary emboli. Aorta: Aorta is nonaneurysmal. Trachea: There are layering secretions in the distal trachea Lungs: No pulmonary contusion or laceration. Bibasilar subsegmental atelectasis noted. No evidence of airspace opacity or interlobular septal thickening. No suspicious pulmonary lesions. Pleural spaces: No pneumothorax. No pleural effusion. Heart: Unremarkable. No cardiomegaly. No pericardial effusion. Coronary arteries: No significant coronary artery calcifications. Lymph nodes: No lymphadenopathy. Bones/joints: Acute mildly displaced fractures encompassing 5-8 right lateral ribs. No segmental rib fractures. For findings in the thoracic spine, please refer to the separately dictated thoracic spine CT report under a separate accession number. Soft tissues: Unremarkable. IMPRESSION: 1. No pulmonary contusion or laceration. 2. Acute mildly displaced fractures encompassing 5-8 right lateral ribs. No segmental fractures.
--- NOTE | 2023-10-17 09:10 | CT_ITS ---
PROCEDURE INFORMATION: Exam: CT Thoracic Spine Without Contrast Exam date and time: 10/17/2023 10:14 AM Age: 37 years old Clinical indication: Injury or trauma; Fall; Blunt trauma (contusions or hematomas); Additional info: Trauma, critical injury suspected TECHNIQUE: Imaging protocol: Computed tomography of the thoracic spine without contrast. Radiation optimization: All CT scans at this facility use at least one of these dose optimization techniques: automated exposure control; mA and/or kV adjustment per patient size (includes targeted exams where dose is matched to clinical indication); or iterative reconstruction. COMPARISON: CT CERVICAL SPINE WO CON 10/17/2023 10:11 AM FINDINGS: Bones/joints: No acute fracture. Normal alignment. No significant disc bulge or herniation. No severe spinal canal stenosis. No significant neural foraminal narrowing. Soft tissues: Unremarkable. IMPRESSION: Unremarkable CT Spine.
--- NOTE | 2023-10-17 09:11 | CT_ITS ---
PROCEDURE INFORMATION: Exam: CT Maxillofacial Without Contrast Exam date and time: 10/17/2023 10:08 AM Age: 37 years old Clinical indication: Injury or trauma; Fall; Blunt trauma (contusions or hematomas); Forehead; Additional info: Trauma, critical injury suspected TECHNIQUE: Imaging protocol: Computed tomography of the face without contrast. Radiation optimization: All CT scans at this facility use at least one of these dose optimization techniques: automated exposure control; mA and/or kV adjustment per patient size (includes targeted exams where dose is matched to clinical indication); or iterative reconstruction. COMPARISON: CT HEAD/BRAIN WO CON 10/17/2023 10:05 AM FINDINGS: Orbital cavities: Orbits are normal. Globes are unremarkable. Paranasal sinuses: There is mild paranasal sinus mucosal thickening. Bones: There is an old appearing right nasal bone fracture. Otherwise there is no evidence of acute fracture. Soft tissues: Unremarkable. IMPRESSION: Old appearing right nasal bone fracture. Otherwise no evidence of acute fracture.
[2023-10-17] MEDS: MORPHINE 4MG/ML SYRINGE 4 MG IV (09:21)
[2023-10-17 09:30] VITALS: PULSE 97; O2SAT 93
[2023-10-17 09:37] LABS: Alanine Aminotransferase 44 U/L (12-78); Albumin Level 4.6 g/dl (3.5-5.0); Albumin/Globulin Ratio 1.4 (1.1-1.8); Alkaline Phosphatase 78 U/L (38-126); Anion Gap 11.2 mEq/L (5-15); Aspartate Amino Transferase 72 U/L (17-59); Bilirubin,Total 0.6 mg/dl (0.2-1.3); Blood Urea Nitrogen 5 mg/dl (9-20); Calcium 10.1 mg/dl (8.4-10.2); Carbon Dioxide 26 mmol/L (22.0-30.0); Chloride 103 mmol/L (98-107); Creatinine Clearance Estimated 6 mL/min (50-200); Estimated Glomerular Filt Rate 151 ml/min (>60); GFR (African American) 182 ML/MIN (>60); Globulin 3.3 g/dL (1.3-3.2); Glucose 114 mg/dl (74-100); Potassium 4.2 mmoL/L (3.5-5.1); Sodium 136 mmol/L (136-145); Total Protein,Serum 7.9 g/dl (6.3-8.2)
[2023-10-17 09:43] LABS: Activated Partial Thrombo Time 29.6 seconds (22.8-30.6); INR 0.92 (0.9-1.1); Prothrombin Time 10.4 seconds (10.1-12.5)
[2023-10-17 09:44] LABS: Ethyl Alcohol 30 mg/dl (0-10)
[2023-10-17] MEDS: SODIUM CHLORIDE 0.9% 10ML SYR (RAD ONLY) 10 ML IV (10:27)
[2023-10-17] MEDS: 0.9 % SODIUM CHLORIDE 50 ML VIAL 100 ML IV (10:27)
[2023-10-17] MEDS: IOPAMIDOL-370 (76%);100ML BOTTLE 200 ML IV (10:27)
[2023-10-17 10:31] VITALS: PULSE 99; O2SAT 93
[2023-10-17] MEDS: TET/DIPHTH/PERT-ADULT 0.5ML SYRINGE 0.5 ML IM (10:41)
[2023-10-17 10:47] LABS: Basophils # 0.1 K/mm3 (0-0.2); Basophils % 0.7 % (0.1-2.0); Eosinophils # 0.1 K/mm3 (0.0-0.4); Eosinophils % 1.3 % (0.1-12.0); Hematocrit 52.5 % (42.0-52.0); Hemoglobin 17.8 g/dL (14.1-18.0); Lymphocytes # 0.8 K/mm3 (0.7-4.5); Lymphocytes % 8.6 % (10-50); Mean Corpuscular Volume 100.2 fl (80-94); Monocytes # 0.5 K/mm3 (0.1-1.0); Monocytes % 5.6 % (1.7-9.3); Neutrophils # 7.8 K/mm3 (1.8-7.8); Neutrophils % 83.8 % (37.0-80.0); Platelet Count 249 K/mm3 (142-424); Red Blood Count 5.24 M/mm3 (4.60-6.20); Red Cell Distribution Width 13.7 % (11.5-17.5); White Blood Count 9.3 K/mm3 (4.8-10.8)
--- NOTE | 2023-10-17 11:55 | PC.NURSE ---
pt given Incentive spirometer
--- NOTE | 2023-10-17 11:55 | PC.NURSE ---
speaking with pt
[2023-10-17] MEDS: OXYCODONE 5MG IMMEDIATE RELEASE TABLET 5 MG PO (12:02)
[2023-10-17 12:59] VITALS: BP 150/101; PULSE 89; RESP 22; TEMP 37.2; O2SAT 93
== END 2023-10-17 13:17 | disposition home or self-care (01) ==
PROVIDERS: Emergency Provider Emergency Medicine
DX: S22.41XA Multiple fractures of ribs, right side, initial encounter for closed fracture (principal); R07.1 Chest pain on breathing; F17.210 Nicotine dependence, cigarettes, uncomplicated; W17.81XA Fall down embankment (hill), initial encounter; Z23 Encounter for immunization
CPT/HCPCS: 70450; 70486; 70496; 70498; 71275; 72125; 72128; 72131; 74174; 80053; 80320; 85025; 85610; 85730; 90471; 90715; 96374; 99285; G0480; J2270; Q9967

== ENCOUNTER 2023-10-19 07:30 | Observation (INO) | payer SELFPAY ==
[2023-10-19] VITALS (15 sets, daily range): BP systolic 148–206; BP diastolic 90–124; PULSE 70–125; RESP 16–20; TEMP 36.6–37.1; O2SAT 90–96; BMI 28.7; BMI 29.2
--- NOTE | 2023-10-19 07:44 | XR_ITS ---
FINAL REPORT CLINICAL HISTORY: Chest pain, rib fractures COMPARISON: CTA chest dated 10/17/2023 FINDINGS: Two views of the chest were obtained. The heart size and pulmonary vascularity are within normal limits. The mediastinum is normal. No acute pulmonary abnormality is identified. There is no pneumothorax. There are right, fifth through eighth, posterior rib fractures. IMPRESSION: No active cardiopulmonary disease. No pneumothorax. Reviewed, Interpreted and Dictated by Farhat Mcguire III, MD Transcribed by Kelsey Azevedo Authenticated and [facility]
--- NOTE | 2023-10-19 07:45 | PC.NURSE ---
pt to xr
[2023-10-19 08:00] LABS: Basophils % 0.3 % (0.1-2.0); Eosinophils # 0.1 K/mm3 (0.0-0.4); Eosinophils % 0.5 % (0.1-12.0); Hemoglobin 17.7 g/dL (14.1-18.0); Lymphocytes # 0.5 K/mm3 (0.7-4.5); Mean Corpuscular HGB Conc 32.8 g/dL (31.8-35.4); Mean Corpuscular Hemoglobin 33.6 pg (27.0-31.2); Mean Corpuscular Volume 102.3 fl (80-94); Mean Platelet Volume 8.3 fl (7.4-10.4); Monocytes # 0.5 K/mm3 (0.1-1.0); Monocytes % 3.7 % (1.7-9.3); Neutrophils # 11.7 K/mm3 (1.8-7.8); Neutrophils % 91.5 % (37.0-80.0); Platelet Count 204 K/mm3 (142-424); Red Blood Count 5.28 M/mm3 (4.60-6.20); Red Cell Distribution Width 13.3 % (11.5-17.5); White Blood Count 12.8 K/mm3 (4.8-10.8)
[2023-10-19] MEDS: ACETAMINOPHEN 1,000MG/100ML VIAL 1000 MG IV (08:01)
[2023-10-19] MEDS: METHYLPREDNISOLONE SOD SUCC 125MG VIAL 125 MG IV (08:02)
[2023-10-19] MEDS: HYDROMORPHONE 2MG/ML SYRINGE 0.5 MG IV (08:02)
[2023-10-19] MEDS: KETOROLAC 30MG/ML VIAL 15 MG IV (08:02)
[2023-10-19 08:03] LABS: MANUAL DIFFERENTIAL MANUAL DIFFERENTIAL (MANUAL DIFF)
--- NOTE | 2023-10-19 08:03 | PC.NURSE ---
I rounded on the pt. He states he wants suctioned to help with his secretions.
--- NOTE | 2023-10-19 08:03 | PC.NURSE ---
pt returned from xr
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
[2023-10-19] MEDS: LACTATED RINGERS 1000ML 1,000 ML 999 ML IV (08:15)
[2023-10-19] MEDS: IPRATROPIUM/ALBUTEROL 3 ML NEB 9 ML IH (08:15)
[2023-10-19 08:27] LABS: Lymphocytes % 8 % (10-50); Monocytes % 2 % (2-9); Neutrophils % 90 % (42-76); Total Cells Counted 100
--- NOTE | 2023-10-19 08:39 | PC.NURSE ---
Respiratory bedside to deep suction
--- NOTE | 2023-10-19 08:40 | PC.NURSE ---
PT NT suctioned at this time.
[2023-10-19 08:44] LABS: Macrocytosis 1+; Platelet Estimate Normal
[2023-10-19] MEDS: CEFTRIAXONE SODIUM 2 GM in 0.9 % SODIUM CHLORIDE 100 ML IV (09:02)
[2023-10-19] MEDS: ONDANSETRON 4MG/2ML VIAL 4 MG IV (09:06)
--- NOTE | 2023-10-19 09:07 | PC.NURSE ---
I called to request a bed for admission.
--- NOTE | 2023-10-19 09:10 | P.HP_ITS ---
History of Present Illness *Admission Date: 10/19/23 *Reason for visit:: Pain *History of present illness: This is a 37-year-old male who presents to [facility] emergency department for the second time in 48 hours with concerns of right rib pain. His initial presentation to the ED he describes falling off an embankment and sustaining injury to his right rib cage. Previous ED imaging identified multiple rib fractures on the right (fifth through eighth). He describes pain characterized as sharp and made worse with deep inspiration. He rates the pain as greater than 10 on a 1-10 pain scale. He identifies no site bruising, skin eruptions or repeat injury. He denies associated dyspnea at rest. He reports no associated hemoptysis. He identifies an occasional cough that makes his pain worse. He is bringing up some white thick sputum. He reports previously pre scribed oxycodone is not helping. His past medical history significant for tobacco dependence for greater than 20 years. In the ED he was tachycardic with elevated blood pressures with low room air sats that improved with the addition of 2 L of oxygen via nasal cannula. His chest x-ray identifies acute rib fractures with no other acute cardiopulmonary airspace disease. [facility] Disclaimer: The information contained in this section may have been updated after the patient was seen, as this information can be updated by other users. Medical History (Updated 10/19/23 @ 13:17 by Tomy Sinclair MD) Hypertension Hearing Loss Medical clearance for incarceration Nail avulsion of toe Tobacco abuse Surgical History No significant past surgical history Family History Other No significant family history Social History (Updated 10/19/23 @ 09:59 by Kay Swift RN) Smoking Status: Current every day smoker tobacco type: cigarettes packs per day: 2 alcohol intake: current alcohol intake frequency: holidays/special occasions only current occupational status: employed Travel in the last 8 weeks: None Review of Systems Review of Systems Review of systems:: pertinent systems reviewed and negative unless documented below Constitutional Constitutional: Denies chills, Denies fever(s), Denies snoring and Denies stops breathing during sleep ENT Ears, Nose, Mouth, and Throat: Denies throat swelling *Cardiovascular Cardiovascular: Denies irregular heart rhythm, Denies palpitations and Denies syncope *Respiratory Respiratory: Denies hemoptysis and Denies snoring *Gastrointestinal Gastrointestinal: Denies hematemesis, Denies hematochezia and Denies melena *Musculoskeletal Musculoskeletal: Reports as per HPI *Neurologic Neurologic: Denies syncope Endocrine Endocrine: Denies palpitations Allergic/Immunologic Allergic/Immunologic: Denies throat swelling Meds Home Medications and Allergies Home Medications Medication Instructions Recorded Confirmed Type methocarbamol 500 mg tablet 500 mg PO Q8H #90 tabs 10/17/23 10/19/23 Rx acetaminophen 500 mg capsule 500 mg PO Q6HP PRN Mild Pain 10/19/23 10/19/23 History (Scale Score 1-4) ibuprofen 600 mg tablet 600 mg PO Q8HP PRN Mild Pain 10/19/23 10/19/23 History (Scale Score 1-4) oxycodone 5 mg tablet 5 mg PO Q8HP PRN Severe Pain 10/19/23 10/19/23 History (Scale Score 7-10) New Prescriptions to Start Prescriptions: Allergies Allergy/AdvReac Type Severity Reaction Status Date / Time No Known Allergies Allergy Verified 10/19/23 09:09 Exam Data for Last 24 hours Vital signs and Labs for Last 24 Hours: Temp Pulse Resp BP Pulse Ox O2 Del Method O2 Flow Rate 98.4 F 120 H 20 171/104 H 91 L Room Air 2 10/19/23 07:44 10/19/23 08:30 10/19/23 07:52 10/19/23 08:30 10/19/23 08:30 10/19/23 08:30 10/19/23 07:52 Laboratory Results - last 24 hr 10/19/23 07:50: WBC 12.8 H D, RBC 5.28, Hgb 17.7, Hct 54.0 H, MCV 102.3 H, MCH 33.6 H, MCHC 32.8, RDW 13.3, Plt Count 204, MPV 8.3, Neut % (Auto) 91.5 H, Lymph % (Auto) 4.0 L, [place] % (Auto) 3.7, Eos % (Auto) 0.5, Baso % (Auto) 0.3, Neut # (Auto) 11.7 H, Lymph # (Auto) 0.5 L, [place] # (Auto) 0.5, Eos # (Auto) 0.1, Baso # (Auto) 0.0, Total Counted 100, Neutrophils % (Manual) 90 H, Lymphocytes % (Manual) 8 L, Monocytes % (Manual) 2, Platelet Estimate Normal, Macrocytosis 1+ I & O for Last 24 hours: Intake & Output 10/16/23 10/17/23 10/18/23 10/19/23 23:59 23:59 23:59 23:59 Weight 90.718 kg Constitutional Constitutional: no acute distress, obese, disheveled and cooperative *Routine HEENT Exam Head: Present normocephalic Eye: Present EOMI and PERRL ENT: Present mucous membranes moist *Routine Neck Exam Neck: Present supple; Absent lymphadenopathy Routine Chest/Breast/Axilla Exam Chest wall: Present tenderness *Routine Respiratory Exam Respiratory: Present rhonchi, wheezes, normal respiratory effort and symmetric chest movement *Routine Cardiovascular Exam Cardiovascular: Present RRR *Routine Abdominal Exam Abdominal: Present soft and tenderness *Routine Rectal Exam Rectal:: deferred *Routine Genitalia Exam Genitalia:: deferred *Routine Extremities Exam Extremities: Present full ROM and normal capillary refill; Absent edema or tenderness *Routine Skin Exam Skin: Present warm and normal turgor; Absent wounds or rash *Routine Neurological Exam Neurological: Present alert, oriented X3, moving all extremities, vision grossly intact, hearing grossly intact and normal speech; Absent sensory deficit or motor deficit Routine Psychiatric Exam Psychiatric: Present normal affect, normal thought process, cooperative, good insight and good judgment Assessment and Plan *Assessment and plan (1) Acute hypoxemic respiratory failure: Status: Acute Category: Medical Code(s): J96.01 - Acute respiratory failure with hypoxia (2) Multiple closed fractures of ribs of right side: Status: Acute Qualifiers: Encounter type: initial encounter Qualified Code(s): S22.41XA - Multiple fractures of ribs, right side, initial encounter for closed fracture Category: Medical Code(s): S22.41XA - Multiple fractures of ribs, right side, initial encounter for closed fracture (3) Severe pain: Status: Acute Category: Medical Code(s): R52 - Pain, unspecified (4) Hypertension: Status: Acute Qualifiers: Hypertension type: primary hypertension Qualified Code(s): I10 - Essential (primary) hypertension Category: Medical Code(s): I10 - Essential (primary) hypertension (5) Tobacco abuse: Status: Acute Category: Medical Code(s): Z72.0 - Tobacco use Plan 37-year-old male with identified fall and injury with multiple rib fractures on right identified on imaging with failed outpatient management. He returns to the ED reporting uncontrolled pain, dyspnea with identified diminished oxygen saturations on room air and croupy productive cough with a longstanding history of tobacco dependence. Problems addressed as follows: Acute hypoxic respiratory failure Multiple closed right-sided rib fractures (5-8) Intractable pain Tobacco dependence Pulse oximetry monitoring Oxygen therapy to maintain appropriate oxygen saturations currently requiring 2 L via nasal cannula No home oxygen requirement Janel/Janel inhalation therapy Doxycycline 100 mg p.o. twice daily Tobacco cessation education Incentive spirometry Nicotine replacement therapy Pain control Parenterally administered controlled substance for comfort care Hypertension Routine blood pressure monitoring ARB therapy Beta-ankita therapy The patient will be admitted to observation status for above diagnoses. Tobacco cessation education is provided. He voiced understanding on the benefits of complete tobacco cessation to improve his health.
--- NOTE | 2023-10-19 09:14 | PC.WOUNDNOTE ---
Called report to Buffy STEIN
[2023-10-19 09:34] LABS: Ethyl Alcohol < 10 mg/dl (0-10)
[2023-10-19 09:35] LABS: Prothrombin Time 11.2 seconds (10.1-12.5)
--- NOTE | 2023-10-19 09:40 | PC.NURSE ---
arrived by w/c from ED
--- NOTE | 2023-10-19 09:40 | HMH.PHAINT1 ---
Pharmacy Intervention Comments: MEDICATION RECONCILIATION COMPLETED ON PATIENT USING EXTERNAL FILL HISTORY FROM PHARMACY, LORY REPORT, AND DISCHARGE SUMMARY FROM ER. -CORTEZ VARGASD
[2023-10-19] MEDS: MORPHINE 4MG/ML SYRINGE 4 MG IV (09:56)
[2023-10-19] MEDS: 0.9 % SODIUM CHLORIDE 1000ML 1,000 ML 125 ML IV ×2 (09:56→17:30)
[2023-10-19] MEDS: ENOXAPARIN 40MG/0.4ML SYRINGE 40 MG SQ (10:02)
[2023-10-19] MEDS: PANTOPRAZOLE 40MG TABLET 40 MG PO (10:02)
[2023-10-19 10:31] LABS: Vitamin B12 884 pg/mL (239-931)
[2023-10-19] MEDS: IPRATROPIUM/ALBUTEROL 3 ML NEB IH ×3 (11:41→23:15)
[2023-10-19] MEDS: OXYCODONE 5MG IMMEDIATE RELEASE TABLET 5 MG PO (13:13)
[2023-10-19] MEDS: NICOTINE 21MG/24HR PATCH 21 MG TD (13:15)
[2023-10-19] MEDS: METOPROLOL SUCCINATE XL 25MG TABLET 25 MG PO (15:31)
[2023-10-19] MEDS: IRBESARTAN 75MG TABLET 75 MG PO (15:31)
--- NOTE | 2023-10-19 15:40 | PC.NURSE ---
Pt currently resting in bed. Currently on 2L NC. O2 sats low 90s. Pt denies any soa at this time. Has productive cough. Rib pain has improved this shift and is tolerable. BP has been elevated. New medication orders placed and carried out. Call light within reach.
[2023-10-19] MEDS: DOXYCYCLINE HYCL 100 MG TABLET PO (21:36)
[2023-10-20] VITALS: BP 169/97; PULSE 110; PULSE 99; RESP 16; TEMP 36.8; O2SAT 92
[2023-10-20] MEDS: KETOROLAC 30MG/ML VIAL 30 MG IV (00:26)
[2023-10-20] MEDS: 0.9 % SODIUM CHLORIDE 1000ML 1,000 ML 125 ML IV (02:56)
[2023-10-20 04:00] VITALS: BP 135/72; PULSE 70; PULSE 80; RESP 18; TEMP 36.9; O2SAT 95; BMI 29.9
--- NOTE | 2023-10-20 05:39 | PC.NURSE ---
Pt alert and oriented. Ambulated in hallway this shift. Complained of pain time, treated per jun. Rested well throughout night. Pt RA O2 sat >90%. Independent in room. Right side tender. Call light in reach.
[2023-10-20] MEDS: IPRATROPIUM/ALBUTEROL 3 ML NEB IH ×2 (06:11→11:24)
[2023-10-20 06:12] VITALS: PULSE 74; PULSE 79; O2SAT 95
[2023-10-20 06:58] LABS: Basophils # 0.1 K/mm3 (0-0.2); Basophils % 0.5 % (0.1-2.0); Eosinophils # 0.1 K/mm3 (0.0-0.4); Lymphocytes # 1.4 K/mm3 (0.7-4.5); Red Cell Distribution Width 13.4 % (11.5-17.5)
[2023-10-20 07:06] LABS: Hematocrit 45.1 % (42.0-52.0); Lymphocytes % 13.7 % (10-50); Mean Corpuscular HGB Conc 33.1 g/dL (31.8-35.4); Mean Corpuscular Hemoglobin 33.3 pg (27.0-31.2); Mean Corpuscular Volume 100.7 fl (80-94); Monocytes # 0.7 K/mm3 (0.1-1.0); Monocytes % 6.6 % (1.7-9.3); Neutrophils # 7.8 K/mm3 (1.8-7.8); Neutrophils % 78.3 % (37.0-80.0); Platelet Count 178 K/mm3 (142-424); Red Blood Count 4.48 M/mm3 (4.60-6.20)
[2023-10-20 07:08] LABS: Chloride 109 mmol/L (98-107); Potassium 3.7 mmoL/L (3.5-5.1); Sodium 137 mmol/L (136-145)
[2023-10-20 07:11] LABS: Anion Gap 5.7 mEq/L (5-15); Blood Urea Nitrogen 9 mg/dl (9-20); Calcium 9.1 mg/dl (8.4-10.2); Carbon Dioxide 26 mmol/L (22.0-30.0); Creatinine Clearance Estimated 192 mL/min (50-200); Estimated Glomerular Filt Rate 126 ml/min (>60); GFR (African American) 153 ML/MIN (>60); Glucose 85 mg/dl (74-100); Magnesium 1.8 mg/dl (1.6-2.3)
[2023-10-20 07:18] LABS: Hemoglobin 14.9 g/dL (14.1-18.0)
[2023-10-20 08:00] VITALS: BP 159/85; PULSE 79; PULSE 85; RESP 17; TEMP 36.7; O2SAT 98
[2023-10-20] MEDS: IRBESARTAN 75MG TABLET 75 MG PO (08:49)
[2023-10-20] MEDS: PANTOPRAZOLE 40MG TABLET 40 MG PO (08:49)
[2023-10-20] MEDS: ENOXAPARIN 40MG/0.4ML SYRINGE 40 MG SQ (08:49)
[2023-10-20] MEDS: METOPROLOL SUCCINATE XL 25MG TABLET 25 MG PO (08:49)
[2023-10-20] MEDS: DOXYCYCLINE HYCL 100 MG TABLET PO (08:49)
[2023-10-20 12:00] VITALS: PULSE 90
--- NOTE | 2023-10-20 13:12 | P.DS_ITS ---
General Admission date:: 10/19/23 Discharge date: 10/20/23 HPI HPI HPI: This is a 37-year-old male who presents to [facility] emergency department for the second time in 48 hours with concerns of right rib pain. His initial presentation to the ED he describes falling off an embankment and sustaining injury to his right rib cage. Previous ED imaging identified multiple rib fractures on the right (fifth through eighth). He describes pain characterized as sharp and made worse with deep inspiration. He rates the pain as greater than 10 on a 1-10 pain scale. He identifies no site bruising, skin eruptions or repeat injury. He denies associated dyspnea at rest. He reports no associated hemoptysis. He identifies an occasional cough that makes his pain worse. He is bringing up some white thick sputum. He reports previously prescribed oxycodone is not helping. His past medical history significant for tobacco dependence for greater than 20 years. In the ED he was tachycardic with elevated blood pressures with low room air sats that improved with the addition of 2 L of oxygen via nasal cannula. His chest x-ray identifies acute rib fractures with no other acute cardiopulmonary airspace disease. Hospital Course Hospital Course Hospital Course: Patient to hospital after fall off embankment, and diagnosed with right-sided multiple rib fractures (5-8). Patient received pain control during hospitalization, and noted to be on room air by 10/20/2023. Patient pain decently controlled with p.o. pain medicines. Patient ultimately discharged home and instructed to follow-up with PCP on outpatient basis. Patient discharged home on room air at time of hospital discharge. Patient also discharged home on as needed NSAIDs, muscle relaxants, and other as needed pain medications at time of hospital discharge. Exam Data for Last 24 hours Vital signs and Labs for Last 24 Hours: Temp Pulse Resp BP Pulse Ox O2 Del Method O2 Flow Rate 98.0 F 79 17 159/85 H 98 Room Air 2 10/20/23 08:00 10/20/23 08:00 10/20/23 08:00 10/20/23 08:00 10/20/23 08:00 10/20/23 10:42 10/19/23 18:51 Laboratory Results - last 24 hr 10/20/23 06:05: WBC 10.0, RBC 4.48 L, Hgb 14.9 D, Hct 45.1, MCV 100.7 H, MCH 33.3 H, MCHC 33.1, RDW 13.4, Plt Count 178, MPV 8.0, Neut % (Auto) 78.3, Lymph % (Auto) 13.7, [place] % (Auto) 6.6, Eos % (Auto) 1.0, Baso % (Auto) 0.5, Neut # (Auto) 7.8, Lymph # (Auto) 1.4, [place] # (Auto) 0.7, Eos # (Auto) 0.1, Baso # (Auto) 0.1, Sodium 137, Potassium 3.7, Chloride 109 H, Carbon Dioxide 26, Anion Gap 5.7, BUN 9 D, Creatinine 0.70, Estimated Creat Clear 192, Estimated GFR 126, Est GFR ( Amer) 153, Glucose 85, Calcium 9.1, Magnesium 1.8 I & O for Last 24 hours: Intake & Output 10/17/23 10/18/23 10/19/23 10/20/23 23:59 23:59 23:59 23:59 Intake Total 1244 / 1244 2032 Output Total 0 / 0 0 / 0 Balance 1244 / 1244 2032 Weight 92.306 kg 94.801 kg Results Data Completed and Pending Labs on day of discharge: Labs from last 24 hours 10/20/23 06:05 WBC 10.0 RBC 4.48 L Hgb 14.9 D Hct 45.1 MCV 100.7 H MCH 33.3 H MCHC 33.1 RDW 13.4 Plt Count 178 MPV 8.0 Neut % (Auto) 78.3 Lymph % (Auto) 13.7 [place] % (Auto) 6.6 Eos % (Auto) 1.0 Baso % (Auto) 0.5 Neut # (Auto) 7.8 Lymph # (Auto) 1.4 [place] # (Auto) 0.7 Eos # (Auto) 0.1 Baso # (Auto) 0.1 Sodium 137 Potassium 3.7 Chloride 109 H Carbon Dioxide 26 Anion Gap 5.7 BUN 9 D Creatinine 0.70 Estimated Creat Clear 192 Estimated GFR 126 Est GFR ( Amer) 153 Glucose 85 Calcium 9.1 Magnesium 1.8 Imaging and Cardiology TESTING: Status: image reviewed by me Additional comments: Date of Service: 10/19/23 Procedure(s): XR chest 2V Accession Number(s): [id number] cc: Farhat Mcguire MD; Provider,Referral MD~ FINAL REPORT CLINICAL HISTORY: Chest pain, rib fractures COMPARISON: CTA chest dated 10/17/2023 FINDINGS: Two views of the chest were obtained. The heart size and pulmonary vascularity are within normal limits. The mediastinum is normal. No acute pulmonary abnormality is identified. There is no pneumothorax. There are right, fifth through eighth, posterior rib fractures. IMPRESSION: No active cardiopulmonary disease. No pneumothorax. Ordering Physician: Herbert Rose MD Date of Service: 10/17/23 Procedure(s): CT facial bones wo con Accession Number(s): [id number] cc: Herbert Rose MD; Cricket Lima MD; Provider,Referral MD~ PROCEDURE INFORMATION: Exam: CT Maxillofacial Without Contrast Exam date and time: 10/17/2023 10:08 AM Age: 37 years old Clinical indication: Injury or trauma; Fall; Blunt trauma (contusions or hematomas); Forehead; Additional info: Trauma, critical injury suspected TECHNIQUE: Imaging protocol: Computed tomography of the face without contrast. Radiation optimization: All CT scans at this facility use at least one of these dose optimization techniques: automated exposure control; mA and/or kV adjustment per patient size (includes targeted exams where dose is matched to clinical indication); or iterative reconstruction. COMPARISON: CT HEAD/BRAIN WO CON 10/17/2023 10:05 AM FINDINGS: Orbital cavities: Orbits are normal. Globes are unremarkable. Paranasal sinuses: There is mild paranasal sinus mucosal thickening. Bones: There is an old appearing right nasal bone fracture. Otherwise there is no evidence of acute fracture. Soft tissues: Unremarkable. IMPRESSION: Old appearing right nasal bone fracture. Otherwise no evidence of acute fracture. Ordering Physician: Herbert Rose MD Date of Service: 10/17/23 Procedure(s): CT thoracic spine wo con Accession Number(s): [id number] cc: Herbert Rose MD; Ozzy Medrano MD; Provider,Referral ~ PROCEDURE INFORMATION: Exam: CT Thoracic Spine Without Contrast Exam date and time: 10/17/2023 10:14 AM Age: 37 years old Clinical indication: Injury or trauma; Fall; Blunt trauma (contusions or hematomas); Additional info: Trauma, critical injury suspected TECHNIQUE: Imaging protocol: Computed tomography of the thoracic spine without contrast. Radiation optimization: All CT scans at this facility use at least one of these dose optimization techniques: automated exposure control; mA and/or kV adjustment per patient size (includes targeted exams where dose is matched to clinical indication); or iterative reconstruction. COMPARISON: CT CERVICAL SPINE WO CON 10/17/2023 10:11 AM FINDINGS: Bones/joints: No acute fracture. Normal alignment. No significant disc bulge or herniation. No severe spinal canal stenosis. No significant neural foraminal narrowing. Soft tissues: Unremarkable. IMPRESSION: Unremarkable CT Spine. Ordering Physician: Herbert Rose MD Date of Service: 10/17/23 Procedure(s): CT angio neck Accession Number(s): [id number] cc: Herbert Rose MD; Cricket Lima MD; Provider,Referral ~ PROCEDURE INFORMATION: Exam: CTA Neck With Contrast Exam date and time: 10/17/2023 10:21 AM Age: 37 years old Clinical indication: Injury or trauma; Fall; Blunt trauma; Head; Additional info: Trauma, critical injury suspected TECHNIQUE: Imaging protocol: Computed tomographic angiography of the neck with contrast. Exam focused on the cervical segments of the vasculature. 3D rendering (Not supervised by radiologist): MIP and/or 3D reconstructed images were created by the technologist. Radiation optimization: All CT scans at this facility use at least one of these dose optimization techniques: automated exposure control; mA and/or kV adjustment per patient size (includes targeted exams where dose is matched to clinical indication); or iterative reconstruction. Contrast material: ISOVUE 370; Contrast volume: 100 ml; Contrast route: INTRAVENOUS (IV); COMPARISON: CT CERVICAL SPINE WO CON 10/17/2023 10:11 AM FINDINGS: Right common carotid artery: No stenosis. No dissection or occlusion. Right internal carotid artery: No stenosis of the extracranial segment. No dissection or occlusion. Right external carotid artery: No occlusion or stenosis of the origin. Left common carotid artery: No stenosis. No dissection or occlusion. Left internal carotid artery: No stenosis of the extracranial segment. No dissection or occlusion. Left external carotid artery: No occlusion or stenosis of the origin. Right vertebral artery: No stenosis. No dissection or occlusion. Left vertebral artery: No stenosis. No dissection or occlusion. Soft tissues: Normal. No significant soft tissue swelling. Bones/joints: There is a partially displaced right 5th rib fracture. IMPRESSION: 1. No evidence of vascular injury. 2. Partially displaced right 5th rib fracture. REFERENCES: NASCET CRITERIA. The degree of stenosis in the cervical segment of the internal carotid artery is based on NASCET criteria. Normal is no stenosis. Mild is less than 50% stenosis. Moderate is 50-69% stenosis. Severe is 70% to 99% stenosis. Total occlusion is no detectable patent lumen. Ordering Physician: Herbert Rose MD Date of Service: 10/17/23 Procedure(s): CT lumbar spine wo con Accession Number(s): [id number] cc: Herbert Rose MD; Allyson Velázquez MD; Provider,Referral MD~ PROCEDURE INFORMATION: Exam: CT Lumbar Spine Without Contrast Exam date and time: 10/17/2023 10:17 AM Age: 37 years old Clinical indication: Injury or trauma; Fall; Blunt trauma (contusions or hematomas); Additional info: Trauma, critical injury suspected TECHNIQUE: Imaging protocol: Computed tomography of the lumbar spine without contrast. Radiation optimization: All CT scans at this facility use at least one of these dose optimization techniques: automated exposure control; mA and/or kV adjustment per patient size (includes targeted exams where dose is matched to clinical indication); or iterative reconstruction. COMPARISON: CT LUMBAR SPINE [facility] 10/17/2023 10:17 AM FINDINGS: Bones/joints: There is preservation of vertebral alignment and vertebral body heights. Facet joints are aligned. No acute fracture. No significant central spinal canal stenosis or neural foraminal narrowing at any level. Sacroiliac joints are intact. Soft tissues: Unremarkable. IMPRESSION: No acute fracture. No traumatic subluxation. Ordering Physician: Herbert Rose MD Date of Service: 10/17/23 Procedure(s): CT angio head Accession Number(s): [id number] cc: Herbert Rose MD; Ozzy Medrano MD; Provider,Referral MD~ PROCEDURE INFORMATION: Exam: CTA Head With Contrast, Arteriography Exam date and time: 10/17/2023 10:21 AM Age: 37 years old Clinical indication: Injury or trauma; Fall; Blunt trauma; Head; Additional info: Trauma, critical injury suspected TECHNIQUE: Imaging protocol: Computed tomographic angiography of the head with contrast. Exam focused on the arteries. 3D rendering (Not supervised by radiologist): MIP and/or 3D reconstructed images were created by the technologist. Radiation optimization: All CT scans at this facility use at least one of these dose optimization techniques: automated exposure control; mA and/or kV adjustment per patient size (includes targeted exams where dose is matched to clinical indication); or iterative reconstruction. Contrast material: ISOVUE 370; Contrast volume: 100 ml; Contrast route: INTRAVENOUS (IV); COMPARISON: CT HEAD/BRAIN [facility] 10/17/2023 10:05 AM FINDINGS: ANTERIOR CIRCULATION: Right internal carotid artery: Intracranial segment is patent with no significant stenosis. No aneurysm. Right middle cerebral artery: No occlusion or significant stenosis. No aneurysm. Right anterior cerebral artery: No occlusion or significant stenosis. No aneurysm. Left internal carotid artery: Intracranial segment is patent with no significant stenosis. No aneurysm. Left middle cerebral artery: No occlusion or significant stenosis. No aneurysm. Left anterior cerebral artery: No occlusion or significant stenosis. No aneurysm. POSTERIOR CIRCULATION: Right vertebral artery: No occlusion or significant stenosis. No aneurysm. Left vertebral artery: No occlusion or significant stenosis. No aneurysm. Basilar artery: No occlusion or significant stenosis. No aneurysm. Right posterior cerebral artery: No occlusion or significant stenosis. No aneurysm. Left posterior cerebral artery: No occlusion or significant stenosis. No aneurysm. Brain: No definite mass, mass effect, or midline shift. Cerebral ventricles: No ventriculomegaly. Bones/joints: Unremarkable. No acute fracture. Soft tissues: Unremarkable. IMPRESSION: No large vessel stenosis or occlusion. PROCEDURE INFORMATION: Exam: CTA Neck With Contrast Exam date and time: 10/17/2023 10:21 AM Age: 37 years old Clinical indication: Injury or trauma; Fall; Blunt trauma; Head; Additional info: Trauma, critical injury suspected TECHNIQUE: Imaging protocol: Computed tomographic angiography of the neck with contrast. Exam focused on the cervical segments of the vasculature. 3D rendering (Not supervised by radiologist): MIP and/or 3D reconstructed images were created by the technologist. COMPARISON: CT ANGIO NECK 10/17/2023 10:21 AM FINDINGS: Right common carotid artery: No stenosis. No dissection or occlusion. Right internal carotid artery: No stenosis of the extracranial segment. No dissection or occlusion. Right external carotid artery: No occlusion or stenosis of the origin. Left common carotid artery: No stenosis. No dissection or occlusion. Left internal carotid artery: No stenosis of the extracranial segment. No dissection or occlusion. Left external carotid artery: No occlusion or stenosis of the origin. Right vertebral artery: No stenosis. No dissection or occlusion. Left vertebral artery: No stenosis. No dissection or occlusion. Soft tissues: Normal. No significant soft tissue swelling. Bones/joints: No acute fracture. IMPRESSION: No stenosis or occlusion. REFERENCES: NASCET CRITERIA. The degree of stenosis in the cervical segment of the internal carotid artery is based on NASCET criteria. Normal is no stenosis. Mild is less than 50% stenosis. Moderate is 50-69% stenosis. Severe is 70% to 99% stenosis. Total occlusion is no detectable patent lumen. Ordering Physician: Herbert Rose MD Date of Service: 10/17/23 Procedure(s): CT head/brain wo con Accession Number(s): [id number] cc: Herbert Rose MD; Cricket Lima MD; Provider,Referral MD~ PROCEDURE INFORMATION: Exam: CT Head Without Contrast Exam date and time: 10/17/2023 10:05 AM Age: 37 years old Clinical indication: Injury or trauma; Fall; Blunt trauma (contusions or hematomas); Consciousness not specified; Additional info: Trauma, critical injury suspected TECHNIQUE: Imaging protocol: Computed tomography of the head without contrast. Radiation optimization: All CT scans at this facility use at least one of these dose optimization techniques: automated exposure control; mA and/or kV adjustment per patient size (includes targeted exams where dose is matched to clinical indication); or iterative reconstruction. COMPARISON: No relevant prior studies available. FINDINGS: Brain: There is no evidence of acute parenchymal hemorrhage, extra-axial collection, or acute infarction. There is no mass effect, midline shift, or downward herniation. Cerebral ventricles: No ventriculomegaly. Paranasal sinuses: Visualized sinuses are unremarkable. No fluid levels. Mastoid air cells: Visualized mastoid air cells are well aerated. Bones: Unremarkable. No acute fracture. Soft tissues: Unremarkable. IMPRESSION: No acute intracranial abnormality. ---- Ordering Physician: Herbert Rose MD Date of Service: 10/17/23 Procedure(s): CT angio chest - dissection Accession Number(s): [id number] cc: Herbert Rose MD; Allyson Velázquez MD; Provider,Referral MD~ PROCEDURE INFORMATION: Exam: CTA Chest With Contrast Exam date and time: 10/17/2023 10:26 AM Age: 37 years old Clinical indication: Injury or trauma; Fall; Blunt trauma (contusions or hematomas); Additional info: Trauma, critical injury suspected TECHNIQUE: Imaging protocol: Computed tomographic angiography of the chest with contrast. Exam focused on the arteries. 3D rendering (Not supervised by radiologist): MIP and/or 3D reconstructed images were created by the technologist. Radiation optimization: All CT scans at this facility use at least one of these dose optimization techniques: automated exposure control; mA and/or kV adjustment per patient size (includes targeted exams where dose is matched to clinical indication); or iterative reconstruction. Contrast material: ISOVUE 370; Contrast volume: 100 ml; Contrast route: INTRAVENOUS (IV); COMPARISON: CR CXR2V XR chest 2V 07/28/2017 5:17 PM FINDINGS: Pulmonary arteries: Normal. No pulmonary emboli. Aorta: Aorta is nonaneurysmal. Trachea: There are layering secretions in the distal trachea Lungs: No pulmonary contusion or laceration. Bibasilar subsegmental atelectasis noted. No evidence of airspace opacity or interlobular septal thickening. No suspicious pulmonary lesions. Pleural spaces: No pneumothorax. No pleural effusion. Heart: Unremarkable. No cardiomegaly. No pericardial effusion. Coronary arteries: No significant coronary artery calcifications. Lymph nodes: No lymphadenopathy. Bones/joints: Acute mildly displaced fractures encompassing 5-8 right lateral ribs. No segmental rib fractures. For findings in the thoracic spine, please refer to the separately dictated thoracic spine CT report under a separate accession number. Soft tissues: Unremarkable. IMPRESSION: 1. No pulmonary contusion or laceration. 2. Acute mildly displaced fractures encompassing 5-8 right lateral ribs. No segmental fractures. Ordering Physician: Herbert Rose MD Date of Service: 10/17/23 Procedure(s): CT cervical spine wo con Accession Number(s): [id number] cc: Herbert Rose MD; Cricket Lima MD; Provider,Referral ~ PROCEDURE INFORMATION: Exam: CT Cervical Spine Without Contrast Exam date and time: 10/17/2023 10:11 AM Age: 37 years old Clinical indication: Injury or trauma; Fall; Blunt trauma; Additional info: Trauma, critical injury suspected TECHNIQUE: Imaging protocol: Computed tomography of the cervical spine without contrast. Radiation optimization: All CT scans at this facility use at least one of these dose optimization techniques: automated exposure control; mA and/or kV adjustment per patient size (includes targeted exams where dose is matched to clinical indication); or iterative reconstruction. COMPARISON: CT FACIAL BONES [facility] 10/17/2023 10:08 AM FINDINGS: Bones/joints: No acute fracture. Normal alignment. There is straightening of cervical lordosis. There is mild multilevel spondylosis. C2-C3: No significant disc bulge or herniation. No severe spinal canal stenosis. No significant neural foraminal narrowing. C3-C4: No significant disc bulge or herniation. No severe spinal canal stenosis. No significant neural foraminal narrowing. C4-C5: No significant disc bulge or herniation. No severe spinal canal stenosis. No significant neural foraminal narrowing. C5-C6: No significant disc bulge or herniation. No severe spinal canal stenosis. No significant neural foraminal narrowing. C6-C7: No significant disc bulge or herniation. No severe spinal canal stenosis. No significant neural foraminal narrowing. C7-T1: No significant disc bulge or herniation. No severe spinal canal stenosis. No significant neural foraminal narrowing. Lungs: Lung apices are normal. Soft tissues: Unremarkable. IMPRESSION: No acute findings. Ordering Physician: Herbert Rose MD Date of Service: 10/17/23 Procedure(s): CT angio abdomen pelvis Accession Number(s): [id number] cc: Herbert Rose MD; Allyson Velázquez MD; Provider,Referral MD~ PROCEDURE INFORMATION: Exam: CTA Abdomen and Pelvis With Contrast Exam date and time: 10/17/2023 10:26 AM Age: 37 years old Clinical indication: Injury or trauma; Fall; Blunt trauma; Lower abdominal or back area; Bilateral; Additional info: Trauma, critical injury suspected TECHNIQUE: Imaging protocol: Computed tomographic angiography of the abdomen and pelvis with contrast. Exam focused on the arteries. 3D rendering (Not supervised by radiologist): MIP and/or 3D reconstructed images were created by the technologist. Radiation optimization: All CT scans at this facility use at least one of these dose optimization techniques: automated exposure control; mA and/or kV adjustment per patient size (includes targeted exams where dose is matched to clinical indication); or iterative reconstruction. Contrast material: ISOVUE 370; Contrast volume: 100 ml; Contrast route: INTRAVENOUS (IV); COMPARISON: CT ANGIO CHEST 10/17/2023 10:26 AM FINDINGS: Aorta: No aortic aneurysm. No aortic dissection. Celiac trunk and mesenteric arteries: No occlusion or significant stenosis. Renal arteries: No occlusion or significant stenosis. Right iliac arteries: No occlusion or significant stenosis. Left iliac arteries: No occlusion or significant stenosis. Liver: No focal hepatic lesions. Hepatic steatosis noted. Gallbladder and biliary ducts: Gallbladder is distended without radiopaque cholelithiasis. No biliary ductal dilation. Pancreas: No peripancreatic fluid stranding. No main pancreatic ductal dilation. Spleen: Spleen measures 13.6 cm. Adrenal glands: The adrenal glands are normal. Kidneys and ureters: Nephrograms are symmetric. No nephrolithiasis or hydroureteronephrosis on either side. No solid lesions Stomach and bowel: No bowel wall thickening or distention. Appendix: A normal appendix is identified. Intraperitoneal space: There is no evidence of free intraperitoneal or pelvic fluid. Lymph nodes: Unremarkable. No enlarged lymph nodes. Urinary bladder: Urinary bladder is unremarkable. Reproductive: Unremarkable as visualized. Bones/joints: No acute osseous abnormality. For findings in the lumbar spine, please refer to the separately dictated lumbar spine CT report under a separate accession number. Soft tissues: Unremarkable. Other findings: For findings in the chest, please refer to the separately dictated chest CT report under a separate accession number. IMPRESSION: 1. No traumatic injury or acute abnormality in the abdomen or pelvis 2. Spleen is at the upper limits of normality/mild splenomegaly 3. Hepatic steatosis DS: Diagnosis Discharge Diagnosis (1) Acute hypoxemic respiratory failure: Status: Acute Code(s): J96.01 - Acute respiratory failure with hypoxia (2) Multiple closed fractures of ribs of right side: Status: Acute Code(s): S22.41XA - Multiple fractures of ribs, right side, initial encounter for closed fracture Qualifiers: Encounter type: initial encounter Qualified Code(s): S22.41XA - Multiple fractures of ribs, right side, initial encounter for closed fracture (3) Severe pain: Status: Acute Code(s): R52 - Pain, unspecified (4) Hypertension: Status: Acute Code(s): I10 - Essential (primary) hypertension Qualifiers: Hypertension type: primary hypertension Qualified Code(s): I10 - Essential (primary) hypertension (5) Tobacco abuse: Status: Acute Code(s): Z72.0 - Tobacco use Meds Home Medications and Allergies Home Medications Medication Instructions Recorded Confirmed Type acetaminophen 500 mg capsule 500 mg PO Q6HP PRN Mild Pain 10/20/23 10/19/23 Rx (Scale Score 1-4) #90 caps ibuprofen 600 mg tablet 600 mg PO Q8HP Mild Pain (Scale 10/20/23 10/19/23 Rx Score 1-4) #90 tabs methocarbamol 500 mg tablet 500 mg PO Q8HP PRN Pain (Scale 10/20/23 10/19/23 Rx Score 4-6) #45 tabs morphine 15 mg immediate release 15 mg PO Q8H PRN pain (scale score 10/20/23 Rx tablet 7-10) #20 tabs New Prescriptions to Start Prescriptions: pat NewtonMaynor Allergies Allergy/AdvReac Type Severity Reaction Status Date / Time No Known Allergies Allergy Verified 10/19/23 09:09 Discharge Plan Disposition Patient Disposition: Home, Self-Care Condition: Fair Follow up Plan Follow up with: Kenji Renee DO [Staff Physician] - 10/28/23 9:30 am Prescriptions/Medication Reconciliation: New morphine 15 mg tablet 15 mg PO Q8H MDD 60mg PRN (Reason: pain (scale score 7-10)) Qty: 20 0RF Changed methocarbamol 500 mg tablet 500 mg PO Q8HP PRN (Reason: Pain (Scale Score 4-6)) Qty: 45 1RF Rx Instructions: Please wait over 8 hours after taking this medication before operating heavy machinery or driving. This medication can cause somnolence. ibuprofen 600 mg tablet 600 mg PO Q8HP Qty: 90 0RF acetaminophen 500 mg capsule 500 mg PO Q6HP PRN (Reason: Mild Pain (Scale Score 1-4)) Qty: 90 0RF Discontinued oxycodone 5 mg tablet 5 mg PO Q8HP PRN (Reason: Severe Pain (Scale Score 7-10)) Problem Reconciliation Problems Reviewed?: Yes Patient Discharge Instructions Patient Instructions: DI for Rib Fracture Providers Primary Care Provider: Provider,Referral Admit Provider: Tomy Sinclair Attending Provider: Tomy Sinclair
--- NOTE | 2023-10-21 13:41 | CARE MANAGER ---
Called and spoke with patient regarding recent discharge. Patient stated that he is doing well, plans to strip picker prescriptions today and was aware of scheduled f/u appts. Patient voiced no concerns at time of call.
== END 2023-10-20 14:15 | disposition home or self-care (01) ==
LOC: ER 09:11 → 2ND 09:16
PROVIDERS: Admitting Provider Family Medicine; Emergency Provider Emergency Medicine; Visit Provider Family Medicine
DX: J96.01 Acute respiratory failure with hypoxia (principal); S22.41XA Multiple fractures of ribs, right side, initial encounter for closed fracture; I10 Essential (primary) hypertension; F17.210 Nicotine dependence, cigarettes, uncomplicated; W17.81XA Fall down embankment (hill), initial encounter
CPT/HCPCS: 36415; 71046; 80048; 80320; 82607; 83735; 85007; 85025; 85610; 94640; 99291; G0378; J0131; J0696; J1170; J1650; J1885; J2270; J2405; J2919; J7120; J7620

== ENCOUNTER 2023-10-30 22:24 | Emergency (ER) | payer SELFPAY ==
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
[2023-10-30 22:36] VITALS: BMI 28.7
[2023-10-30 22:38] VITALS: BP 101/68; PULSE 81; RESP 20; TEMP 36.6; O2SAT 97
--- NOTE | 2023-10-30 22:39 | PC.NURSE ---
Dr. Knowles s/w Dr. Henderson with for transfer
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
[2023-10-30] MEDS: CEFAZOLIN SODIUM 2 GM in 0.9 % SODIUM CHLORIDE 100 ML IV (22:58)
[2023-10-30 23:03] VITALS: BP 96/59; PULSE 86; RESP 20; TEMP 36.6; O2SAT 95
[2023-10-30] MEDS: FENTANYL 100MCG/2ML VIAL 50 MCG IV (23:08)
--- NOTE | 2023-10-30 23:15 | PC.NURSE ---
Report called to SARITA Lee @ [facility]
== END 2023-10-30 23:23 | disposition short-term general hospital (02) ==
PROVIDERS: Emergency Provider Student in an Organized Health Care Education/Training Program
DX: S82.251B Displaced comminuted fracture of shaft of right tibia, initial encounter for open fracture type I or II (principal); S82.451B Displaced comminuted fracture of shaft of right fibula, initial encounter for open fracture type I or II; S22.41XA Multiple fractures of ribs, right side, initial encounter for closed fracture; S20.229A Contusion of unspecified back wall of thorax, initial encounter; S30.811A Abrasion of abdominal wall, initial encounter; S40.212A Abrasion of left shoulder, initial encounter; V86.59XA Driver of other special all-terrain or other off-road motor vehicle injured in nontraffic accident, initial encounter; F17.210 Nicotine dependence, cigarettes, uncomplicated
CPT/HCPCS: 29515; 71045; 72170; 73590; 96365; 96375; 99285; J0690; J3010